=== PATIENT | female | born 1995 | race Caucasian/White ===

== ENCOUNTER 2023-11-19 06:56 | Day surgery (SDC) | payer BC, SELFPAY ==
[2023-11-19] VITALS (19 sets, daily range): BP systolic 82–125; BP diastolic 37–75; PULSE 65–97; RESP 14–27; TEMP 36–36.7; O2SAT 92–100; BMI 33.3
--- OUTSIDE RECORDS SUMMARY | 2023-11-19 06:57 | XMS_ITS | Encounter Summary ---
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 female followed for chronic otitis media with Left TM perforation and CHL, now s/p : Procedure(s): TYMPANOPLASTY (WRVU 10.05) GRAFT, EAR CARTILAGE NOSE, EAR (WRVU 7.5) MICROSCOPE USE (WRVU 3.46) FACIAL NERVE MONITORING, SETUP PERIPHERAL (WRVU 0.54) MODIFIER IRIDEX LASER MODIFIER,ENT MODERATE Findings: Postauricular approach. Large anterior inferior central, dry tympanic membrane perforation without under turned epithelium. Remnant drum with grade IV retraction posterior superior with associated myringoincudopexy with adhesions to inferior aspect of stapes suprastructure and stapes tendon, with early erosion of lenticular process of incus, and retraction towards posterior sinus. Remnant drum elevated in continuity. I-S joint overall intact with normal mobility of ossicular chain. NoOCR deemed required. Partial scutum removal with bony curette for surgical exposure, with preservation of chorda tympani. Significant fibrous adhesions posterior superior mesotympanum released from diaz rrounding structures. Iridex laser used to de-epithelialize margins of perforation and for release of remnant drum from malleus manubrium and umbo. Repair with Biodesign otologic graft. Interval history: Pain? Yes- but this is improving every day Drainage? Yes- but also improving every day Vertigo? No Fever/Chills/Night Sweats? No Nausea/Vomiting? No Eating Regular diet? Yes Questions/Concerns? No PMH: reviewed, no interval change System review: the Constitutional and ENT systems are thoroughly reviewed for any changes. Pertinent positives are listed in the HPI. Physical Exam The patient is well developed, well nourished. Responds to commands appropriately. Vocalizes in a strong clear voice. Alert and oriented x3. Ears: Ear were carefully examined using binocular microscopy Left side: Post Auricular incision clean, dry, intact. Steri-strips removed without complication. No evidence of discharge, hemorrhage or dehiscence EAC obsturcted with Gel-foam packing TM not visualized EOMI (CN III, IV, ) Sharp sensation intact and symmetric bilaterally in all trigeminal branches(CN V) Facial Nerve Function is strong and symmetric (CN VII) House-Brackman I Hitselberger Test - no hypoesthesia in either EAC (CNVII) Palate is midline and voice is strong (CN IX & X) Tongue is midline (CN XII) Shoulder elevation is strong and symmetrical (XI) Audiological Exam None deferred until none Labs and Imaging Significant lab values are as follows: None I reviewed the following imaging studies: None A/P: Now s/p Procedure(s): TYMPANOPLASTY (WRVU 10.05) GRAFT, EAR CARTILAGE NOSE, EAR (WRVU 7.5) MICROSCOPE USE (WRVU 3.46) FACIAL NERVE MONITORING, SETUP PERIPHERAL (WRVU 0.54) MODIFIER IRIDEX LASER MODIFIER,ENT MODERATE Doing well with no concerns. 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
--- OUTSIDE RECORDS SUMMARY | 2023-11-19 06:57 | XMS_ITS | Encounter Summary ---
Author Organization [facility] Address [facility] [address] [place] [address] Care Team Providers Care Cloth Grader Name Role Phone Kat Agarwal MD Primary Care Provider [phone]- [phone] Reason for Visit * Reason Comments Post Op Some sensation when moving jaw. 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; Conductive hearing loss of left ear with unrestricted hearing of right ear; S/P tympanoplasty Social History Tobacco Use Types Packs/Day Years Used Date Smoking Tobacco: Never Smokeless Tobacco: Never Sex and Gender Information Value Date Recorded Sex Assigned at Not on file Gender Identity Not on file Sexual Orientation Not on file documented as of this encounter Last Filed Vital Signs Vital Sign Reading Time Taken Comments Blood Pressure - - Pulse - - Temperature - - Respiratory Rate - - Oxygen Saturation - - Inhaled Oxygen Concentration - - Weight 93.5 kg (206 lb 1.6 oz) 05/30/2021 9:44 A M EST Height 170.2 cm (5' 7) 05/30/2021 9:44 AM EST Body Mass Index 32.28 05/30/2021 9:44 AM EST documented in this encounter Progress Notes * Anel Rodriguez MD - 05/30/2021 10:00 AM EST HPI: 25 y.o. female followed for h/o chronic otitis media with Left TM perforation and CHL. Now s/pLEFT tympanoplasty. Surgery 04/28/21. Intraoperative Findings: Postauricular approach. Large anterior inferior central, [...] intact with normal mobility of ossicular chain. No OCR deemed required. Partial scutum removal with bony curette for surgical exposure,with preservation of chorda tympani. Significant fibrous adhesions posterior superior mesotympanum r eleased from surrounding structures. Iridex laser used to de-epithelialize margins of perforation and for release of remnant drum from malleus manubrium and umbo. No evidence of roland cholesteatoma. Repair with Biodesign otologic graft. Patient last seen on 05/09 at which time was doing well. Interval history: No pain, drainage, dizziness or vertigo, recent illness. Cont's gtts and dep's. She notes intermittent snapping sounds on the left when she eats, and experienced some occasional temporal spasm. Some reported dysgeusia, improving. No facial weakness or spasm. System review: the Constitutional and ENT systems are thoroughly reviewed for any changes. Pertinent positives are listed in the HPI. Physical Exam General: Alert and oriented. No acute distress. ?? Head and Face: Head is normocephalic, atraumatic. Facial resting tone symmetric. ?? Eyes: Conjugate gaze, ocular motility intact bilaterally. No spontaneous or gaze evoked nystagmus. ?? Neurologic: Cranial Nerves II-XII grossly intact and symmetric. ?? Ears: External ears without deformity. See documentation of otomicroscopy below. ?? Tuning forks: Moss lateralizes left; AC>BC right, AC>BC left (improved from preop) ? Ears examined and cleaned with aid of binocular microscopy. ?? Right Ear: Auricle normal. External auditory canal clear. Drum is intact with normal mobility via pneumatic otoscopy. No appreciable retraction, and pars flaccida region clear. Posterior focal myringosclerosis. Middle ear is well aerated. Negative fistula test. ?? Left Ear: Auricle normal. Postauricular incision well healed. Remnant packing removed from left EAC. EAC canal incisions healing well. Grafted drum appears intact. Continued epithelialization. No retraction. Some residual posterior superior edema. No granulation or infection. Audiological Exam NA Labs and Imaging Significant lab values are as follows: None I reviewed the following imaging studies: None A/P: Dakotah Saleh is a 25 y.o. female with history of chronic otitis media, ADHD, anxiety, and depression who presented with history of recent ear infection on the left manifesting as otalgia, otorrheaand subjective hearing decline, with symptoms largely improving following treatment with ototopicalantibiotic drops. However, she was aware of a persistent hearing loss on this side. Patient acknowledged a history of recurrent otalgia on the left with water exposure without roland infections. Past history of childhood chronic otitis media with presumed Eustachian tube dysfunction and multiple prior tympanostomy tubes bilaterally, most recently as an adolescent. ?? Examination findings on the left included an approximate 25% anterior inferior, central, dry tympanic membrane perforation, as well as a grade 4 posterior superior retraction with associated myringoincudopexy. No accumulated debris. No significant scutal erosion. No obvious incus erosion. Patient now approximately one months s/p LEFT tympanoplasty. Surgery 04/28/21. Patient doing overall well since surgery. Appears to be healing well. Grafted drum appears intact. Tuning fork testing today reassuring. -Discussed maintaining dry ear precautions. Patient can stop ear drops at this time. -Plan for FU in one month with repeat audiogram as scheduled. Anel Rodriguez MD ENT PGY-3 [place] [id number] phone: [phone] Otolaryngology Attending Physician Addendum I have seen and examined the patient and reviewed the resident's history and I agree with the details as written. The assessment and plan were formulated in discussion with me and I agree with them as documented. 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
--- OUTSIDE RECORDS SUMMARY | 2023-11-19 06:57 | XMS_ITS | Encounter Summary ---
Author Organization [facility] Address [facility] [address] [place] [address] Care Team Providers Care Hoop Flaring Machine Operator Helper Name Role Phone Kat Agarwal MD Primary Care Provider [phone]- [phone] Encounter Details Date Type Department Care Team (Late st Contact Info) Description 12/20/2021 9:40 AM EDT Office [place] [address] Kimo Beltran MD [facility] [place] [address] Conductive hearing loss of left ear with unrestricted hearing of right ear; S/P tympanoplasty; Temporomandibular dysfunction syndrome Social History Tobacco Use Types Packs/Day Years Used Date Smoking Tobacco: Never Smokeless Tobacco: Never Sex and Gender Information Value Date Recorded Sex Assigned at Not on file Gender Identity Not on file Sexual Orientation Not on file documented as of this encounter Progress Notes * Kimo Beltran MD - 12/20/2021 9:40 AM EDT Interval History: 12/20/2021. Presents today with father. Reports recent issues with aural fullness bilaterally, left greater than right. She has additionally been aware of some pain in the preauricular region with radiation to the left temporal regions and left jaw, with occasional radiation of pain into the left proximal neck. Reports ongoing clicking with jaw movements. She has a past history of spasm involving the musclesof mastication following surgery. Denies any jaw locking. Patient questions possible bruxism history. Denies malocclusion. No known nighttime teeth grinding. Pain not obviously exacerbated by chewingor eating. Denies any current otalgia concerns. Denies any recent otorrhea. Hearing has remained sub jectively stable. She is primarily concerned regarding the possibility of recurrent ear infection in the left ear. Repeat audiogram 12/20/2021 reviewed. Essentially normal thresholds on the right. Borderline normal thresholds on the left with slight conductive overlay. Speech sales representative supervisor thresholds at 10 dB for the right and 20 dB for the left. Excellent bilateral discrimination. Type Ad tymp AD and type As tymp . Findings overall stable as compared to prior audiogram 07/11/2021. 09/14/2021: F/u left ear. Hearing stable. Had some fullness/otalgia left ear for past few days. No otorrhea. Nodizziness/vertigo. Accompanied by father. 07/11/2021: H/o chronic otitis media with Left TM perforation and CHL. Now s/p LEFT tympanoplasty. Surgery 04/28/21. Intraoperative Findings: Postauricular approach. [...] with Biodesign otologic graft. Patient last seen 05/30/2021. Denies pain. No otorrhea, but the left ear has felt somewhat wet. No dizziness or vertigo. Reports mild residual dysgeusia, largely improved. Repeat audiogram 07/11/2021 reviewed. Normal to mild conductive hearing loss on the left. Improvement of 5-35 dB from 250 to 6000 Hz as compared to prior audiogram 02/02/2021. Largely normal thresholds on the right save for slight hearing decline at 8000 Hz. SRT 0dB right and 10dB left. Excellent bilateral discrimination. Type Ad tymp right, with large vol flat tymp left. System review: the Constitutional and ENT systems are thoroughly reviewed for any changes. Pertinent positives are listed in the HPI. Physical Exam General: Alert and oriented. No acute distress. Head and Face: Head is normocephalic, atraumatic. Facial resting tone symmetric. Eyes: Conjugate gaze, ocular motility intact bilaterally. No spontaneous or gaze evoked nystagmus. Neurologic: Cranial Nerves II-XII grossly intact and symmetric. Ears: External ears without deformity. See documentation of otomicroscopy below. MSK: Normal neck range of motion. No trismus. Clicking / grinding bilateral TMJ with preauricular ttp, left greater than right. Resp: Breathing comfortably without stridor or retractions. Normal respirations. CV: Normal carotid pulses. Psych: Normal mood and affect. Ears examined and cleaned with aid of binocular microscopy. ?? Right Ear: Auricle normal. External auditory canal clear. Drum is intact with normal mobility via pneumatic otoscopy. No appreciable retraction, and pars flaccida region clear. Posterior focal myringosclerosis. Middle ear is well aerated. Negative fistula test. ?? Left Ear: Auricle normal. Well healed postauricular scar. Grafted drum intact today. No appreciableretraction. Normally mobile via pneumatic otoscopy. Evidence of some lateralization of remnant drumoff umbo and distal manubrium as well as middle ear adhesions, although middle ear appears well aerated. No mucosalization, granulation or infection. No evident cholesteatoma. Audiological Exam NA Labs and Imaging Significant lab values are as follows: None I reviewed the following imaging studies: None A/P: Dakotah Saleh is a 25 y.o. female with history of ADHD, anxiety, and depression who presented with history of chronic suppurative otitis media and hearing loss concerns left ear. Past history of childhood chronic otitis media with presumed Eustachian tube dysfunction and multiple prior tympanostomy tubes bilaterally, most recently as an adolescent. ?? Examination findings on the left included an approximate 25% anterior inferior, central, dry tympanic membrane perforation, as well as a grade 4 posterior superior retraction, with associated myringoincudopexy. No accumulated debris. No significant scutal erosion. No incus erosion. Patient underwent left tympanoplasty. Surgery 04/28/21. Had small residual inferior perforation following surgery which has since healed spontaneously. Experienced significant hearing improvements left ear following surgery, with repeat audiogram stable today. Recent complaints of aural fullness with some periodic otalgia, left greater than right. Explained that otomicroscopic exam findings today overall very reassuring. No evidence of infection, and no appreciable evidence for ongoing ETD. Discussed that characterization of complaints and exam findings are suspect for temporomandibular dysfunction with referred otalgia. Conservative treatment strategies have been reviewed, to include recommendations for soft diet, abstinence from gum chewing, NSAIDs prn, as well as consideration to possible nighttime splint which she could pursue with her Dentist. Other lifestyle strategies regarding sleep hygiene and exercise were also discussed. Also discussed recommended close serial otologic surveillance. Plan f/u 6 months, sooner prn. Early return precautions reviewed. Total time spent counseling and coordinating patient care 40 minutes. Kimo Beltran MD Otology / Neurotology Otolaryngology - Head & Neck Surgery [facility] documented in this encounter Plan of Treatment Not on file documented as of this encounter Visit Diagnoses Diagnosis Conductive hearing loss of left ear with unrestricted hearing of right ear S/P tympanoplasty Other postprocedural status Temporomandibular dysfunction syndrome Temporomandibular joint disorders, unspecified documented in this encounter Care Teams Hoop Flaring Machine Operator Helper Relationship Specialty Start Date End Date Kat Agarwal MD [address] [place] [id number] PCP - General Family Medicine 03/24/21 documented as of this encounter
--- OUTSIDE RECORDS SUMMARY | 2023-11-19 06:57 | XMS_ITS | Encounter Summary ---
Author Organization [facility] Address [facility] [place] [place] [address] Care Team Providers Care Steam Pressure Chamber Operator Name Role Phone Kat Agarwal MD Primary Care Provider +1- [phone] Reason for Visit * Reason Comments Follow-up She is having ear pa in. Encounter Details Date Type Department Care Team (Late st Contact Info) Description 07/17/2023 1:40 PM EDT Office [place] [phone] Kimo Beltran MD [facility] [place] [address] Conductive hearing loss of left ear with unrestricted hearing of right ear; Otalgia of both ears; Temporomandibular dysfunction syndrome; Chronic neck pain; Deviated nasal septum; Nasal turbinate hypertrophy Social History Tobacco Use Types Packs/Day Years [...] - Inhaled Oxygen Concentration - - Weight 103 kg (227 lb) 07/17/2023 1:52 PM EDT Height 175.3 cm (5' 9) 07/17/2023 1:52 PM EDT Body Mass Index 33.52 07/17/2023 1:52 PM EDT documented in this encounter Progress Notes * Kimo Beltran MD - 07/17/2023 1:40 PM EDT Interval History: 07/16/2023: Follow-up routine otologic and hearing surveillance. Accompanied by father. Patient reports she experienced an upper respiratory illness in March. Experienced a popping sensation in her left ear. Later experienced left greater than right ear pain. No otorrhea or subjective changes in hearing. Presented to urgent care. Treated empirically with otic topical antibiotic drops left ear. Reports no subjective benefit with this. In subsequent follow-up with PCP, treated empirically with oral antibiotics. Was then well until she reports she felt like she twisted her neck, and the pain again recurred. Pain has since largely resolved. Hearing has remained stable. No dizziness / vertigo concerns, but reports motion sickness sensation when riding in the back of the car. Has been contending with suboccipital and paraspinal muscle pain and tension. Has also still been contending with temporomandibular dysfunction symptoms by report, and she is slated to see a TMJ specialist. History of bruxism and presumed nighttime teeth grinding. A daytime splint and oral nightguard has apparently been recommended by Dental. Denies headaches or migraine. No visual sxs or focal neurologic concerns. Has also been more aware recently of left greater than right nasal obstructive complaints. Denies mid facial pain or pressure. No rhinorrhea. Patient is aware a periodic postnasal drip sensation. No allergy or asthma history. No history of recurrent acute or chronic sinusitis requiring antibiotics.Reported snoring. No obvious NELDA concerns. Repeat audiogram 07/17/2023 reviewed. Essentially normal thresholds right. Normal to mild conductive hearing loss left. BC thresholds symmetric. SRT DNT. Excellent bilateral discrimination. Normal bilateral tympanometry. As compared to prior audiogram 12/20/2021, findings essentially unchanged. 12/20/2021. Presents today with father. Reports recent [...] the left with slight conductive overlay. Speech administrative assistant receptionist thresholds at 10 dB for the right [...] without deformity. See documentation of otomicroscopy below. Nose: External nose is midline without deformity or lesion. Left nasal septal deviation. Bilateral ITH, right greater than left. Oral: There are no visible or palpable buccal, gingival, lingual, or palatal lesions. The floor of mouth is soft and flat. Oropharynx: Normal exam of the tonsils, tonsillar fossa, soft palate, and posterior pharynx. Salivary: Normal exam of the parotid and submandibular glands. Hem/Lymph/Imm: Neck supple without cervical mass or lymphadenopathy. Skin: Skin survey of the head and neck is without concerning lesion. MSK: Normal neck range of motion. Posterior cervical paraspinal muscle tension with spasm. Significant suboccipital muscle tension with spasm, with palpation recreating left otalgia complaints. No trismus. Crepitance bilateral TMJ with preauricular ttp, left greater than right. Also with ttp posterior temporomandibular joint capsule left. Resp: Breathing comfortably without stridor or retractions. Normal respirations. CV: Normal carotid pulses. Psych: Normal mood and affect. Ears examined and cleaned with aid of binocular microscopy. Right Ear: Auricle normal. External auditory canal clear. Drum is intact with normal mobility via pneumatic otoscopy. No appreciable retraction, and pars flaccida region clear. Posterior focal myringosclerosis. Middle ear is well aerated. Negative fistula test. Stable exam. Left Ear: Auricle normal. Well healed postauricular scar. Grafted drum intact. No appreciable retraction. Normally mobile via pneumatic otoscopy. Evidence of some lateralization of remnant drum off umbo and distal manubrium as well as middle ear adhesions, to include adhesion to incus without evident erosion. Middle ear appears well aerated. No mucosalization, granulation or infection. No evidentcholesteatoma. Overall stable exam. Labs and Imaging Significant lab values are as follows: None I reviewed the following imaging studies: None A/P: Dakotah Saleh is a 25 y.o. female with history of ADHD, anxiety, and depression who presented initially with history of chronic suppurative otitis media and hearing loss concerns left ear. Past history of childhood chronic otitis media with presumed Eustachian tube dysfunction and multiple prior t ympanostomy tubes bilaterally, most recently as an adolescent. Examination findings on the left included an approximate 25% anterior inferior, central, dry tympanic membrane perforation, as well as a grade 4 posterior superior retraction, with associated myringoincudopexy. No accumulated debris. No significant scutal erosion. No incus erosion. Patient underwent left tympanoplasty. Surgery 04/28/21. Had very small residual inferior perforation following surgery which subsequently healed spontaneously. Experienced significant hearing improvements left ear following surgery, with repeat audiogram stable today as compared to previous. Recurrent complaints of aural fullness with periodic otalgia, left greater than right. Otomicroscopic exam findings have remained overall stable and reassuring. No evidence of infection,chronic otitis media, and no appreciable evidence for ongoing ETD. Again discussed that characterization of complaints and exam findings remain suspect for temporomandibular dysfunction with referred otalgia. Patient is followed by Dental, and reportedly slated to see TMJ specialist. By history and exam findings today, consider also suspected referred cervicogenicorigins for recurrent otalgia, with focal suboccipital muscle tenderness to palpation today recreating some her typical otalgia concerns. Conservative treatment strategies have been reviewed, to include recommendations for soft diet, jawrest and abstinence from gum chewing, NSAIDs as needed, moist heat or cold packs, as well as consideration to possible sawdust machine operator or daytime oral splint which had been reportedly recommended by Dental. Other lifestyle strategies regarding sleep hygiene and exercise were also discussed, as well as stress reduction techniques. Also discussed potential role for Physical Therapy or message therapy. Trigger point injections or Botox therapy can sometimes offer benefit. Muscle relaxants, anti-anxiety medications or antidepressants may additionally provide benefit. Discussed recommended continued serial otologic and hearing surveillance. Will arrange for f/u 6 months recheck, sooner prn. Patient today also with nasal obstructive complaints and snoring. Exam with NSD and ITH. Recommended trial with topical nasal steroid spray. Will arrange for f/u with [facility]. Early return precautions reviewed. Total time spent counseling and coordinating patient care 40 minutes. Kimo Beltran MD Otology / Neurotology Otolaryngology - Head & Neck Surgery [facility] documented in this encounter Plan of Treatment Not on file documented as of this encounter Visit Diagnoses Diagnosis Conductive hearing loss of left ear with unrestricted hearing of right ear Otalgia of both ears Otalgia, unspecified Temporomandibular dysfunction syndrome Temporomandibular joint disorders, unspecified Chronic neck pain Cervicalgia Deviated nasal septum Nasal turbinate hypertrophy Hypertrophy of nasal turbinates documented in this encounter Care Teams Steam Pressure Chamber Operator Relationship Specialty Start Date End Date Kat Agarwal MD [address] [place] [id number] PCP - General Family Medicine 03/24/21 documented as of this encounter
--- OUTSIDE RECORDS SUMMARY | 2023-11-19 06:57 | XMS_ITS | Encounter Summary ---
Author Organization [facility] [address] [place] [address] Care Team Providers Care Revenue Cycle Analyst Name Role Phone Kat Agarwal MD Primary Care Provider +1- [phone] Encounter Details Date Type Department Care Team (Late st Contact Info) Description 08/01/[address] [facility] [place] [phone] Bertha Bass RN Social History Tobacco Use Types Packs/Day Years Used Date Smoking Tobacco: Never Smokeless Tobacco: Never Sex and Gender Information Value Date Recorded Sex Assigned at Not on file Gender Identity Not on file Sexual Orientation Not on file documented as of this encounter Miscellaneous Notes * Telephone Encounter - Bertha Bass RN - 08/05/2021 11:30 AM EDT Letter received as well as message received by patient's employer, [employer]. He would like clarification of charges from surgery and amount patient owes. Informed [employer] this is not something this office takes care of and doesn't have access to this information. He will need to reach out to billing department. Phone number offered and given. [employer] will reach out to them for more accurate billing information. * Telephone Encounter - Terry Nathan RN - 08/04/2021 3:13 PM EDT [employer] (patients employer) called because he was reviewing the work letter that was submitted and he needs more details in order for the patient to be reimbursed. His call back number is [phone] ext [phone]. * Telephone Encounter - Bertha Bass RN - 08/01/2021 12:37 PM EDT Patient's call returned. Patient requesting updated letter with both procedures. Numerous explanations given to patient only one surgery was done with description of what was done. Patient stating the employer is asking for more information. New letter written and emailed to same personal emailas before, with all parts of surgery within this letter. Explained to patient if the employer needsfurther information, they will need to fax paperwork to be completed. Patient having a hard time describing what's needed and appearing to have a difficult understanding of what's being requested by employer. ----- Message from Tracy Torrez sent at 08/01/2021 11:54 AM EDT ----- Regarding: Work letter Mireya Patient stated that the letter she received only had the one surgical procedure on it and work is requesting both procedures with a description of what was done, what it was for and the date performed. She said its for insurance purposes that they both need to be listed in the letter. She would like it emailed to her personal email and she will get it to her boss. Thanks! Tracy documented in this encounter Plan of Treatment Not on file documented as of this encounter Visit Diagnoses Not on filedocumented in this encounter Care Teams Revenue Cycle Analyst Relationship Specialty Start Date End Date Kat Agarwal MD [address] [place] [id number] PCP - General Family Medicine 03/24/21 documented as of this encounter
--- OUTSIDE RECORDS SUMMARY | 2023-11-19 06:57 | XMS_ITS | Encounter Summary ---
Author Organization [facility] [address] [place] [address] Care Team Providers Care Engineered Wood Designer Name Role Phone Kat Agarwal MD Primary Care Provider +1- [phone] Encounter Details Date Type Department Care Team (Late st Contact Info) Description 07/27/2021 Telephone Otolaryngology at [facility] [place] [phone] Bertha Bass RN Social History Tobacco Use Types Packs/Day Years Used Date Smoking Tobacco: Never Smokeless Tobacco: Never Sex and Gender Information Value Date Recorded Sex Assigned at Not on file Gender Identity Not on file Sexual Orientation Not on file documented as of this encounter Miscellaneous Notes * Telephone Encounter - Bertha Bass RN - 07/27/2021 6:04 PM EDT Call received on nurse triage line from [employer]. Unable to find information in patient's chart for such a person. Patient called by this RN to see if she knows why [employer] is calling. Patient states [employer] is her employer and he's requesting a letter from ENT stating what patient's surgery was, what itwas for, and the date of surgery. This letter must be on [facility] letterhead and signed by the surgeon. This letter was completed and emailed to patient at her personal email, per her request: [email or web address] documented in this encounter Plan of Treatment Not on file documented as of this encounter Visit Diagnoses Not on filedocumented in this encounter Care Teams Engineered Wood Designer Relationship Specialty Start Date End Date Kat Agarwal MD [address] [place] [address] PCP - General Family Medicine 03/24/21 documented as of this encounter
--- OUTSIDE RECORDS SUMMARY | 2023-11-19 06:57 | XMS_ITS | Encounter Summary ---
Author Organization [facility] Address [facility] [place] [place] [address] Care Team Providers Care End Trimmer Name Role Phone Kat Agarwal MD Primary Care Provider +1- [phone] Encounter Details Date Type Department Care Team (Latest Contact Info) Description 09/14/2021 2:00 PM EDT Office [place] [address] Kimo Beltran MD [facility] [place] [address] Conductive hearing loss of left ear with unrestricted hearing of right ear; Perforation of left tympanic membrane; S/P tympanoplasty Social History Tobacco Use Types Packs/Day Years Used Date Smoking Tobacco: Never Smokeless Tobacco: Never Sex and Gender Information Value Date Recorded Sex Assigned at Not on file Gender Identity Not on file Sexual Orientation Not on file documented as of this encounter Last Filed Vital Signs Vital Sign Reading Time Taken Comments Blood Pressure 102/52 09/14/2021 3:12 PM EDT Pulse 61 09/14/2021 3:12 PM EDT Temperature - - Respiratory Rate - - Oxygen Saturation 100% 09/14/2021 3:12 PM EDT Inhaled Oxygen Concentration - - Weight - - Height - - Body Mass Index - - documented in this encounter Progress Notes * Kimo Beltran MD - 09/14/2021 2:00 PM EDT Interval History: 09/14/2021: F/u left ear. Hearing stable. Had [...] without deformity. See documentation of otomicroscopy below. Psych: Normal mood and affect. Ears examined and cleaned with aid of binocular microscopy. ?? Right Ear: Auricle normal. External auditory canal clear. Drum is intact with normal mobility via pneumatic otoscopy. No appreciable retraction, and pars flaccida region clear. Posterior focal myringosclerosis. Middle ear is well aerated. Negative fistula test. ?? Left Ear: Auricle normal. Postauricular incision well healed. Grafted drum with overriding obstructive dry crusting which we were able to carefully debride clear today with otologic instrumentation. Tolerated without complication. Presenting concerns of fullness/otalgia resolved immediately following debridement. Residual central dry small TM perforation is evident inferiorly. Also with some lateralization of remnant drum off umbo and distal manubrium. No under turned epithelium. Middle ear adhesions. No mucosalization, granulation or infection. Remnant drum without retraction. No evident cholesteatoma. Audiological Exam NA Labs [...] erosion. Patient underwent left tympanoplasty. Surgery 04/28/21. Patient doing overall well since surgery. However, exam today reveals residual TM perforation. We discussed this uncommon circumstance as a potential outcome in some patients. Discussed potential contributing factors, to include possible underlying ETD. Questions answered. Still very satisfied with significant hearing improvements left ear following surgery. Advised continued observation for now, but did discuss the potential option of future revision tympanoplasty, possibly with further cartilage in repair. Will continue with dry ear precautions. Plan f/u 6 months with repeat AE, sooner as needed. Early return precautions reviewed. The total time spent for chart review, history, examination, counseling, education, and documentation was 40 minutes, including 15 minutes spent doing ear debridement. Kimo Beltran MD Otology / Neurotology Otolaryngology - Head & Neck Surgery [facility] documented in this encounter Plan of Treatment Not on file documented as of this encounter Visit Diagnoses Diagnosis Conductive hearing loss of left ear with unrestricted hearing of right ear Perforation of left tympanic membrane Perforation of tympanic membrane, unspecified S/P tympanoplasty Other postprocedural status documented in this encounter Care Teams End Trimmer Relationship Specialty Start Date End Date Kat Agarwal MD [address] [place] [id number] PCP - General Family Medicine 03/24/21 documented as of this encounter
--- OUTSIDE RECORDS SUMMARY | 2023-11-19 06:57 | XMS_ITS | Encounter Summary ---
Author Organization [facility] [place] [address] [place] [address] Care Team Providers Care Social Worker Aide Name Role Phone Kat Agarwal MD Primary Care Provider +1- [phone] Encounter Details Date Type Department Care Team (Late st Contact Info) Description 07/15/2021 Telephone [facility] [place] [phone] Taylor Mcgarry Social History Tobacco Use Types Packs/Day Years Used Date Smoking Tobacco: Never Smokeless Tobacco: Never Sex and Gender Information Value Date Recorded Sex Assigned at Not on file Gender Identity Not on file Sexual Orientation Not on file documented as of this encounter Miscellaneous Notes * Telephone Encounter - Taylor Mcgarry - 07/21/2021 10:17 AM EDT Called [phone] [facility] for callback Sending patient letter * Telephone Encounter - Taylor Mcgarry - 07/15/2021 11:20 AM EDT Called patient at [phone], calling to schedule: Follow-up disposition: Return in about 2 months (around 09/10/2021). - with Dr. Devin Shukla [facility] voicemail for patient to callback documented in this encounter Plan of Treatment Not on file documented as of this encounter Visit Diagnoses Not on filedocumented in this encounter Care Teams Social Worker Aide Relationship Specialty Start Date End Date Kat Agarwal MD [address] [place] [address] PCP - General Family Medicine 03/24/21 documented as of this encounter
--- OUTSIDE RECORDS SUMMARY | 2023-11-19 06:57 | XMS_ITS | Encounter Summary ---
Author Organization [facility] Address [facility] [place] [place] [address] Care Team Providers Care Chemist Food Name Role Phone Kat Agarwal MD Primary Care Provider +1- [phone] Reason for Visit * Reason Comments Follow Up Surgery L ear a little leaky still Encounter Details Date Type Department Care Team (Latest Contact Info) Description 07/11/2021 1:40 PM EDT Office [place] [phone] Kimo Beltran MD [facility] [place] [address] Postoperative examination; Conductive hearing loss of left ear with unrestricted hearing of right ear; 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 Grafted drum with overriding dry crusting. Not tolerant to attempted debridement today. Query small residual perforation inferiorly beneath margin of crust, not fully visualized. No evident retraction or cholesteatoma. Audiological Exam NA Labs and Imaging [...] significant scutal erosion. No incus erosion. Patient now approximately one months s/p LEFT tympanoplasty. Surgery 04/28/21. Patient doing overall well since surgery. Appears to be healing well overall. Grafted drum with overriding central dry crusting today, and patient not tolerant to attempted debridement. Concern over possible small residual perforation anterior inferior at margin of crusting by exam, and by tympanometry testing today. Repeat audiogram with improved hearing on the left. Discussed recommendation for continued observation for now, with plan for short interval follow-up to reassess, in approximately 2 months. Discussed maintaining dry ear precautions for now. Patient and father in agreement with plan. 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
--- OUTSIDE RECORDS SUMMARY | 2023-11-19 06:57 | XMS_ITS | Encounter Summary ---
Author [facility] [address] Care Team Providers Care Molder Apprentice Name Role Phone Kat Agarwal MD Primary Care Provider +1- [phone] Encounter Details Date Type Department Care Team (Latest Contact Info) Description 07/17/2023 Travel Social History Tobacco Use Types Packs/Day Years Used Date Smoking Tobacco: Never Smokeless Tobacco: Never Sex and Gender Information Value Date Recorded Sex Assigned at Not on file Gender Identity Not on file Sexual Orientation Not on file documented as of this encounter Plan of Treatment Not on file documented as of this encounter Visit Diagnoses Not on filedocumented in this encounter Care Teams Molder Apprentice Relationship Specialty Start Date End Date Kat Agarwal MD [address] [place] [address] PCP - General Family Medicine 03/24/21 documented as of this encounter
--- OUTSIDE RECORDS SUMMARY | 2023-11-19 06:57 | XMS_ITS | Encounter Summary ---
Author Organization [facility] [place] [address] [place] [address] Care Team Providers Care Sugar Drier Name Role Phone Kat Agarwal MD Primary Care Provider +1- [phone] Encounter Details Date Type Department Care Team (Late st Contact Info) Description 12/20/2021 8:45 AM EDT Office Visit Audiology at [address] [address] Raissa Arias AUD [facility] [place] [place] [address] Conductive hearing loss of left ear with unrestricted hearing of right ear; Left ear pain Social History Tobacco Use Types Packs/Day Years Used Date Smoking Tobacco: Never Smokeless Tobacco: Never Sex and Gender Information Value Date Recorded Sex Assigned at Not on file Gender Identity Not on file Sexual Orientation Not on file documented as of this encounter Progress Notes * Raissa Arias AUD - 12/20/2021 8:45 AM EDT AUDIOLOGY SECTION Dakotah Robin Saleh, age 26 years, was seen on 12/20/2021 for an audiologic evaluation in conjunction with Kimo Beltran MD. Please refer to the audiogram under the Procedures tab in the electronic medical record for findings, impressions and recommendations. Dick Arias MS, [facility] Clinical Coordinator, [place] [address] [phone] (fax) documented in this encounter Plan of Treatment Not on file documented as of this encounter Procedures Procedure Name Priority Date/Time Associated Diagnosis Comments COMPREHENSIVE HEARING TEST Routine 12/20/2021 8:37 AM EDT documented in this encounter Results * Comprehensive hearing test (12/20/2021 8:37 AM EDT) 12/20/2021 8:37 AM EDT Narrative AUDBASE COMP - 12/20/2021 8:37 AM EDT Pt will follow-up as scheduled with Dr. Beltran. ?? Procedure Note Unknown - 12/20/2021 Pt will follow-up as scheduled with Dr. Beltran. Raissa VASQUES AUDIOLOGY SERVIC ES ORDERABLES AUDBASE COMP documented in this encounter Visit Diagnoses Diagnosis Conductive hearing loss of left ear with unrestricted hearing of right ear Left ear pain Otalgia, unspecified documented in this encounter Care Teams Sugar Drier Relationship Specialty Start Date End Date Kat Agarwal MD [address] [place] [id number] PCP - General Family Medicine 03/24/21 documented as of this encounter
--- OUTSIDE RECORDS SUMMARY | 2023-11-19 06:57 | XMS_ITS | Clinical Summary ---
Author Organization [facility] Address [facility] [place] [address] Care Team Providers Care Bin Operator Name Role Phone Kat Agarwal MD Primary Care Provider +1- [phone] Allergies Active Allergy Reactions Criticality Noted Date Comments Amoxicillin Itching 02/02/2021 Medications Medication Sig Dispensed Refills Start Date End Date Status sertraline (Zoloft) 25 mg Tablet Take 25 mg by mouth daily. Active erythromycin (Romycin) 5 mg/gram (0.5 %) Ointment APPLY IN BOTH EYES DAILY X 7 DAYS AT A TIME WITH BREAKS IN BETWEEN OF AT LEAST 10 TO 14 DAYS 07/20/2021 Active fluticasone propionate (Flonase) 50 mcg/actuation [place], Suspension 1 spray by Each Nare route daily. 16 g 12 07/20/2023 Active Active Problems Problem Noted Date Diagnosed Date Tympanic membrane perforation, left 03/07/2021 Overview (03/07/2021): TYMPANOPLASTY Patient's Name: Dakotah Saleh Surgery Date: 04/28/2021 Interval Follow Up: Year 1 Post-Op 1 Week 4-6 Weeks 10 Weeks 05/05/21 05/28/21 07/11/21 RIMMA - MD x x RIMMA-AP x AUD 45 PRIOR to appt x Social History Tobacco Use Types Packs/Day Years Used Date Smoking Tobacco: Never Smokeless Tobacco: Never Sex and Gender Information Value Date Recorded Sex Assigned at Not on file Gender Identity Not on file Sexual Orientation Not on file Last Filed Vital Signs Vital Sign Reading Time Taken Comments Blood Pressure 102/52 09/14/2021 3:12 PM EDT Pulse 61 09/14/2021 3:12 PM EDT Temperature 36.3 ??C (97.3 ??F) 04/28/2021 3:10 PM ES T Respiratory Rate 16 04/28/2021 3:45 PM EST Oxygen Saturation 100% 09/14/2021 3:12 PM EDT Inhaled Oxygen Concentration - - Weight 103 kg (227 lb) 07/17/2023 1:52 PM EDT Height 175.3 cm (5' 9) 07/17/2023 1:52 PM EDT Body Mass Index 33.52 07/17/2023 1:52 PM EDT Plan of Treatment Health Maintenance Due Date Last Done Comments HIV screen 2012 Hepatitis C Screening 2012 Lipid Screening 2012 Hepatitis B vaccine (0-59 yrs) (1) 2013 Tdap adult 2013 Tetanus vaccine 2013 Covid-19 Vaccine (1 - season) 2022 Influenza (Flu) vaccine (1 o f 1 - Influenza standard series) 12/23/2023 PAP Smear 10/13/2024 10/13/2021 Medical Devices Implanted Type Area Long Distance Billing Operator Device Identifier Shelf Expiration Date Model / Serial / Lot Graft Otologic Repair 2.5x2.5cm Square Bovine Collagen ([id number]) (Autoreq) - [id number] Implanted:Qty : 1 on 04/28/2021 by Kimo Beltran MD at [facility] IMPLANTS Left: Ear [employer] [id number] 07/19/2022 [id number] / / [id number] Procem Implanted:Qty : 1 on 04/28/2021 by Kimo Beltran MD at [facility] Left: Ear [id number] 11/19/2021 [id number] / / [id number] Procedures Procedure Name Priority Date/Time Associated Diagnosis Comments CONTINUOUS IMPROVEMENT COORDINATOR CYTOLOGY FINAL REPORT Routine 10/13/2021 12:00 PM EDT from Last 3 Months or Most Recently Relevant to Health Maintenance Results * Criminal Justice Instructor Cytology Final Report (10/13/2021 12:00 PM EDT) Criminal Justice Instructor Cytology Final Report [id number] ? Location: [facility] The signing pathologist has (i) examined the relevant preparation(s) for the specimen(s) and (ii) rendered or confirmed the diagnosis(es). . ? Criminal Justice Instructor Final DIAGNOSIS Normal Negative for intraepithelial lesion or malignancy (NILM). For consensus guidelines for the management of cervical cancer screening test results, please see: ?? http://www.asccp.o rg . Electronically signed by: ?Sedrick FOSTER(ASCP), Sarah Madden Verified: ??11/01/2021 15:06 ??Sponsorship Coordinator Performed at: ??-[facility] Dept. of Pathology, [place], [place] HPV RESULTS HPV16 (Result) ?Negative HPV18 (Result) ?Negative HPVOHR (Result) ? Negative HPV (Interpretation) ?See Below HPV (Interpretation) Text: NEGATIVE for high-risk HPV *. *Testing negative for high risk HPV means that high risk HPV DNA is not detected in the specimen for the following 14 types tested: types 16, 18, 31, 33, 35, 39, 45, 51, 52, 56, 58, 59, 66, and 68. The test is not intended to detect low risk HPV types. Method: Felix emily HPV test (FDA-approved for clinical use) Specimen: HPV Testing ?? - Cytology Liquid Based Prep This test is validated for cervical specimens only for use in cervical cancer screening. ??Other uses or specimen types are not validated/rec ommended. The Felix emily ? HPV test was validated, performed and results reported through the Laboratory for Clinical Genomics and Advanced Technology (CGAT) at [facility]. ? - Sohan Scott, PhD, [facility], Director-CGAT STATEMENT OF ADEQUACY Specimen submitted is satisfactory. Endocervical component present. CLINICAL INFORMATION HPV Option: ? Concurrent HPV CT/NG Option: ? No Preparation: ?Liquid Based Pap Specimen Source: ?Cervical Endocervical LBP LMP: ?(not provided) Hysterectomy?: ?No ?: ?No ?: ?No I.U.D.?: ?No Pelvic Radiation: ? No Hist Abnl Pap/Biopsy?: ??No Prior CONTINUOUS IMPROVEMENT COORDINATOR Therapy?: ? No Hist of HPV Vaccine?: ?? No ICD Diagnosis: ?Z12.4 Encounter for screening for malignant neoplasm of cervix . CLINICAL INFORMATION Clinical Data, Significant Therapy and Clinical Impression ?? : ?? _ Referring Identifier: ?(not provided) This Pap Test has been evaluated with the assistance of the Hastifyp Pap Test Imaging System. Note: The Pap test is a screening test for cervical cancer with an inherent false-negative rate dependent upon several variables. For further information please contact the [facility] Laboratory. Reference: Danny JARVIS. Tube Tester of Pap Smear Results. In: Se BS, Kavin HH, ed. ??The Pap Smear. [place]: Keith, 2002: 71-77. [facility] 10/13/2021 12:0 0 PM EDT Narrative Resulting Agency Comment Spec In Lab / WKS Kat Agarwal MD PATHOLOGY/CYTOLOGY ORDERABLES [facility] [place] [address] from Last 3 Months or Most Recently Relevant to Health Maintenance Care Teams Bin Operator Relationship Specialty Start Date End Date Kat Agarwal MD [address] [place] [address] PCP - General Family Medicine 03/24/21
--- OUTSIDE RECORDS SUMMARY | 2023-11-19 06:57 | XMS_ITS | Encounter Summary ---
Author Organization [facility] [address] [place] [address] Care Team Providers Care Cotton Inspector Name Role Phone Kat Agarwal MD Primary Care Provider +1- [phone] Encounter Details Date Type Department Care Team (Late st Contact Info) Description 07/17/2023 1:00 PM EDT Office Visit Audiology at [address] [address] Briana Neri AUD [facility] [place] [place] [address] Conductive hearing loss of left ear with unrestricted hearing of right ear; Left ear pain; Pressure sensation in left ear Social History Tobacco Use Types Packs/Day Years Used Date Smoking Tobacco: Never Smokeless Tobacco: Never Sex and Gender Information Value Date Recorded Sex Assigned at Not on file Gender Identity Not on file Sexual Orientation Not on file documented as of this encounter Progress Notes * Briana Neri AUD - 07/17/2023 1:00 PM ED[place] [address] Dakotah Saleh was seen on 07/17/2023 for an audiologic evaluation in conjunction with Dr. Beltran in ENT. Please refer to the scanned audiogram listed under Procedures for findings, impressions and recommendations. Amy Sood CCC (Kate)-A Clinical Staff Pharmacist [facility] [phone] documented in this encounter Plan of Treatment Not on file documented as of this encounter Procedures Procedure Name Priority Date/Time Associated Diagnosis Comments COMPREHENSIVE HEARING TEST Routine 07/17/2023 1:04 PM EDT documented in this encounter Results * Comprehensive hearing test (07/17/2023 1:04 PM EDT) 07/17/2023 1:04 PM EDT Narrative AUDBASE COMP - 07/17/2023 1:04 PM EDT Recommendations: -Follow up per Dr. Beltran in ENT. Procedure Note Unknown - 07/17/2023 Recommendations: -Follow up per Dr. Beltran in ENT. Briana Wheatleymirandapam [facility] ORDERABLES AUDBASE COMP documented in this encounter Visit Diagnoses Diagnosis Conductive hearing loss of left ear with unrestricted hearing of right ear Left ear pain Otalgia, unspecified Pressure sensation in left ear documented in this encounter Care Teams Cotton Inspector Relationship Specialty Start Date End Date Kat Agarwal MD [address] [place] [address] PCP - General Family Medicine 03/24/21 documented as of this encounter
--- OUTSIDE RECORDS SUMMARY | 2023-11-19 06:57 | XMS_ITS | Encounter Summary ---
Author Organization [facility]ly [facility] Address [facility] [place] [address] Care Team Providers Care General Car Supervisor Yard Name Role Phone Kat Agarwal MD Primary Care Provider +1- [phone] Encounter Details Date Type Department Care Team (Latest Contact Info) Description 10/13/2021 9:06 PM EDT - 10/13/2021 11:59 PM EDT Hospital Encounter Laboratory [facility] [place] [id number] Discharge Disposition: Home Social History Tobacco Use Types Packs/Day Years Used Date Smoking Tobacco: Never Smokeless Tobacco: Never Sex and Gender Information Value Date Recorded Sex Assigned at Not on file Gender Identity Not on file Sexual Orientation Not on file documented as of this encounter Medications at Time of Discharge Medication Sig Dispensed Refills Start Date End Date erythromycin (Romycin) 5 mg/gram (0.5 %) Ointment APPLY IN BOTH EYES DAILY X 7 DAYS AT A TIME WITH BREAKS IN BETWEEN OF AT LEAST 10 TO 14 DAYS 07/20/2021 sertraline (Zoloft) 25 mg Tablet Take 25 mg by mouth daily. documented as of this encounter Plan of Treatment Not on file documented as of this encounter Procedures Procedure Name Priority Date/Time Associated Diagnosis Comments HPV Routine 10/13/2021 12:00 PM EDT INSTRUMENT WORKER CYTOLOGY INTERPRETATION Routine 10/13/2021 12:00 PM EDT INSTRUMENT WORKER CYTOLOGY FINAL REPORT Routine 10/13/2021 12:00 PM EDT documented in this encounter Results * INSTRUMENT WORKER Cytology Interpretation (10/13/2021 12:00 PM EDT) Material Handling Supervisor Cytology Interpretation [facility] Comment:Material Handling Supervisor Cytology Final R eport Endocervical Component Present [facility] AP Specimen 10/13/2021 12:0 0 PM EDT 11/01/2021 3:06 PM EDT Narrative Resulting Agency Comment Spec In Lab / WKS Kat Agarwal MD PATHOLOGY/CYTOLOGY ORDERABLES [facility] [place] [address] * Material Handling Supervisor Cytology Final Report (10/13/2021 12:00 PM EDT) Material Handling Supervisor Cytology Final Report [id number] ? Location: [facility] The signing pathologist has (i) examined the relevant preparation(s) for the specimen(s) and (ii) rendered or confirmed the diagnosis(es). . ? Material Handling Supervisor Final DIAGNOSIS Normal Negative for intraepithelial lesion or malignancy (NILM). For consensus guidelines for the management of cervical cancer screening test results, please see: ?? http://www.asccp.o rg . Electronically signed by: ?Sedrick FOSTER(ASCP)Sarah Verified: ??11/01/2021 15:06 ??Item Processor Performed at: ??-[facility] Dept. of Pathology, [place], [place] HPV RESULTS HPV16 (Result) ?Negative HPV18 [...] Clinical Genomics and Advanced Technology (CGAT) at [facility]. ? - Sohan Scott, PhD, [facility], Director-[facility] STATEMENT OF ADEQUACY Specimen submitted is satisfactory. Endocervical component present. CLINICAL INFORMATION HPV Option: ? Concurrent HPV CT/NG Option: ? No Preparation: ?Liquid Based Pap Specimen Source: ?Cervical Endocervical LBP LMP: ?(not provided) Hysterectomy?: ?No ?: ?No ?: ?No I.U.D.?: ?No Pelvic Radiation: ? No Hist Abnl Pap/Biopsy?: ??No Prior INSTRUMENT WORKER Therapy?: ? No Hist of HPV Vaccine?: ?? No ICD Diagnosis: ?Z12.4 Encounter for screening for malignant neoplasm of cervix . CLINICAL INFORMATION Clinical Data, Significant Therapy and Clinical Impression ?? : ?? _ Referring Identifier: ?(not provided) This Pap Test has been evaluated with the assistance of the ThinPrep Pap Test Imaging System. Note: The Pap test is a screening test for cervical cancer with an inherent false-negative rate dependent upon several variables. For further information please contact the [facility] Laboratory. Reference: Danny JARVIS. Clock And Watch Hands Painter of Pap Smear Results. In: Se BS, Kavin HH, ed. ??The Pap Smear. [place]: Keith, 2002: 71-77. [facility] 10/13/2021 12:0 0 PM EDT Narrative Resulting Agency Comment Spec In Lab / WKS Kat Agarwal MD PATHOLOGY/CYTOLOGY ORDERABLES Performing Organization Address [facility] [place] [address] * HPV (10/13/2021 12:00 PM EDT) HPV 16 NEGATIVE NEGATIVE [facility] HPV 18 NEGATIVE NEGATIVE [facility] HPV Other HR NEGATIVE NEGATIVE [facility] HPV Interpretation See Comment [facility] Comment: NEGATIVE for high-risk HPV *. ?? *Testing negative for high risk HPV means that high risk HPV DNA is not detected in the specimen for the following 14 types tested: types 16, 18, 31, 33, 35, 39, 45, 51, 52, 56, 58, 59, 66, and 68. The test is not intended to detect low risk HPV types. ?? Method: Felix emily HPV test (FDA-approved for clinical use) Specimen: HPV Testing ? Cytology Liquid Based Prep This test is validated for cervical specimens only for use in cervical cancer screening. ??Other uses or specimen types are not validated/recommended. Cervical 10/13/2021 12:0 0 PM EDT 10/14/2021 10:14 PM EDT Narrative Resulting Agency Comment Spec In Lab / WKS Kat Agarwal MD PATHOLOGY/CYTOLOGY ORDERABLES Performing Organization Address City/[facility]/ZIP Co de [place] [address] documented in this encounter Visit Diagnoses Not on filedocumented in this encounter Care Teams General Car Supervisor Yard Relationship Specialty Start Date End Date Kat Agarwal MD [address] [place] [address] PCP - General Family Medicine 03/24/21 documented as of this encounter
--- OUTSIDE RECORDS SUMMARY | 2023-11-19 06:57 | XMS_ITS | Encounter Summary ---
Author Organization [facility] [place] [address] [place] [address] Care Team Providers Care Analytical Consultant Name Role Phone Kat Agarwal MD Primary Care Provider +1- [phone] Encounter Details Date Type Department Care Team (Late st Contact Info) Description 04/29/2021 Telephone Otolaryngology at [facility] [place] [address] Gladys Herr RN Social History Tobacco Use Types Packs/Day Years Used Date Smoking Tobacco: Never Smokeless Tobacco: Never Sex and Gender Information Value Date Recorded Sex Assigned at Not on file Gender Identity Not on file Sexual Orientation Not on file documented as of this encounter Miscellaneous Notes * Telephone Encounter - Gladys Herr RN - 04/29/2021 1:03 PM EST Dakotah called after removing her bandage. Surgery was yesterday. Patient reports that the bandage hadsome blood on it and she noted some additional blood in her ear. The blood is not running out of the ear. Advised that some bloody drainage at this point is normal. Advised that this should improve over the next couple days and if it does not we would want to know about that. Also advised that we would not want there to be so much drainage that it is running out of her ear. Patient verbalized understanding and is in agreement with this plan. documented in this encounter Plan of Treatment Not on file documented as of this encounter Visit Diagnoses Not on filedocumented in this encounter Care Teams Analytical Consultant Relationship Specialty Start Date End Date Kat Agarwal MD [address] [place] [address] PCP - General Family Medicine 03/24/21 documented as of this encounter
--- OUTSIDE RECORDS SUMMARY | 2023-11-19 06:57 | XMS_ITS | Encounter Summary ---
Author Organization [facility] [place] [place] [address] Care Team Providers Care Regional Account Manager Name Role Phone Kat Agarwal MD Primary Care Provider +1- [phone] Encounter Details Date Type Department Care Team (Late st Contact Info) Description 07/11/2021 1:00 PM EDT Office Visit Audiology at [address] [address] Jo An AUD [facility] [place] [address] Conductive hearing loss of left ear with unrestricted hearing of right ear; High frequency hearing loss, right Social History Tobacco Use Types Packs/Day Years Used Date Smoking Tobacco: Never Smokeless Tobacco: Never Sex and Gender Information Value Date Recorded Sex Assigned at Not on file Gender Identity Not on file Sexual Orientation Not on file documented as of this encounter Progress Notes * Jo An AUD - 07/11/2021 1:00 PM [place] [address] Dakotah Robin Saleh was seen on 07/11/2021 for an audiologic evaluation in conjunction with Kimo Beltran MD in Otolaryngology. Please refer to the scanned audiogram listed under Procedures for findings, impressions and recommendations. Santa Muller Clinical Director [place] [address] documented in this encounter Plan of Treatment Not on file documented as of this encounter Procedures Procedure Name Priority Date/Time Associated Diagnosis Comments COMPREHENSIVE HEARING TEST Routine 07/11/2021 12:47 PM EDT documented in this encounter Results * Comprehensive hearing test (07/11/2021 12:47 PM EDT) 07/11/2021 12:4 7 PM EDT Narrative AUDBASE COMP - 07/11/2021 12:47 PM EDT RECOMMENDATION: -Follow-up with Kimo Beltran MD in Otolaryngology -Audiologic re-evaluation as per Dr. Beltran or davider if concerns arise Procedure Note Unknown - 07/11/2021 RECOMMENDATION: -Follow-up with Kimo Beltran MD in Otolaryngology -Audiologic re-evaluation as per Dr. Beltran or davider if concerns arise Jo VASQUES AUDIOLOGY SERVI JOEY ORDERABLES AUDBASE COMP documented in this encounter Visit Diagnoses Diagnosis Conductive hearing loss of left ear with unrestricted hearing of right ear High frequency hearing loss, right documented in this encounter Care Teams Regional Account Manager Relationship Specialty Start Date End Date Kat Agarwal MD [address] [place] [address] PCP - General Family Medicine 03/24/21 documented as of this encounter
--- OUTSIDE RECORDS SUMMARY | 2023-11-19 06:58 | XMS_ITS | Encounter Summary ---
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 NERVES, TRUNK OR HEAD TYMPANOPLASTY (WRVU 10.05) GRAFT, EAR CARTILAGE NOSE, EAR (WRVU 7.5) MICROSCOPE USE (WRVU 3.46) FACIAL NERVE MONITORING, SETUP PERIPHERAL (WRVU 0.54) MODIFIER IRIDEX LASER MODIFIER,ENT MODERATE Referral ID Status Reason Start Date Expiration Date Visits Re quested Visits Authorized [id number] 1 1 Encounter Details Date Type Department Care Team (Late st Contact Info) Description 04/28/2021 11:26 AM EST Anesthesia Event [facility] [place] [id number] Radha Beckett MD [facility] [place] [address] Suzie Ramos MD [facility] [place] [address] Anesthesia Record Procedure Summary Procedure Name Responsible Anesthesiologist Anesthesia Start Time Anesthesia Stop Time TYMPANOPLASTY (WRVU 10.05) (Left: Ear) Radha Beckett MD 04/28/21 1126 04/28/21 1515 Events Date Time Event Comment 04/28/2021 1121 1126 AN Verify 1126 Start 1126 An Start Data 1132 An Intubation 1133 An Induction Surgeon request N2O use for Induction 1133 Anesthesia Ready 1133 Quick Note Nitrous started per surgeon request to cause increase in inner ear pressure 1207 Procedure Start 1422 Break/Relief In I assumed ca re for Break Relief before which we: 1. Identified the patient 2. Identified the responsible provider(s) 3. Reviewed the pertinent medical history 4. Discussed the surgical plan and course 5. Reviewed intra-op anesthesia management and issues during anesthesia 6. Set expectations for the relief (and/or post-procedure) period 7. Allowed opportunity for questions and acknowledgement of understanding Tracy Ramos CRNA 1427 Handoff Intra-procedure anesthesia care was transferred after review of the patient's history, current anesthetic/surgical status and procedural plan, anticipated issues and expected post-operative course (including disposition.) Radha Beckett MD 1437 Break/Relief Out 1507 Extubation/LMA Out 1507 an stop data 1515 Recovery or ICU Handoff Miesha ent care was transferred to the destination unit staff after review of the patient's medical history, current anesthetic/surgical status and plan, according to the Provider Handoff Checklist. 1515 Stop Meds Name Total Midazolam 2 mg fentaNYL 100 mcg IV Lidocaine 60 mg Propofol 200 mg Propofol INF 1,525.2 mg Dexmedetomidine 28 mcg Dexamethasone 8 mg Ondansetron 8 mg Ketorolac 30 mg clindamycin (Cleocin) (150 mg/mL) inject ion 600 mg 600 mg lactated ringers infusion 900 mL * Agents Name O2 Air N2O Sevoflurane (et) * Blood No blood administrations on file. Lines, Drains, and Airways Type Details Placement Removal Incision 04/28/21; Left; ear 04/28/21 000 0 by Sarah Harris RN (RETIRED) Peripheral IV Line - Single Lumen 04/28/21; 1108; median cubital vein (antecubital fossa), left; 20 gauge; Iveth SCOTT; distraction, intradermal injection, tolerated well, appears comfortable; site benign ; no longer indicated, catheter/device intact, removed per policy/procedure; 04/28/21; 1615 04/28/21 1108 by Sadaf Conley RN 04/28/21 1615 by Birdie Malik RN Supraglottic Mask Ventilation: No t Attempted (0); LMA Type: air-Q; LMA Size: 4; Inserted by: RG; Removal Date: 04/28/21; Removal Time: 1507 04/28/21 1132 by Ramandeep Moon CRNA 04/28/21 1507 by Ramandeep Moon CRNA documented in this encounter Social History Tobacco Use Types Packs/Day Years Used Date Smoking Tobacco: Never Smokeless Tobacco: Never Sex and Gender Information Value Date Recorded Sex Assigned at Not on file Gender Identity Not on file Sexual Orientation Not on file documented as of this encounter OR Notes * Anesthesia Postprocedure Evaluation - Radha eBckett MD - 04/28/2021 3:37 PM EST Department of Anesthesiology Post-procedure Note Patient: Dakotah Saleh Procedure Summary Date: 04/28/21 Room / Location: 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 Patient Location: PACU/[facility] Level of Consciousness: Conscious but Sleepy Pain Management: Satisfactory Analgesia PONV: None Cardiovascular Status: At Baseline and Hemodynamically Stable Respiratory Status: At Baseline and Supplemental O2 (NC or FM) Postoperative Fluid Status: Intravascular EUvolemia Possible Anesthetic Complications: NONE apparent at time of evaluation Final Primary Anesthesia Type: General (The anesthetic type performed was the same as planned.) Comments: Radha Beckett MD * Anesthesia Preprocedure Evaluation - Maxime Abernathy MD - 04/27/2021 3:17 PM EST Pre-Anesthesia Evaluation for: Dakotah Saleh a 25 y.o. female. Procedure(s): TYMPANOPLASTY (WRVU 10.05) GRAFT, EAR CARTILAGE NOSE, EAR (WRVU 7.5) MICROSCOPE USE (WRVU 3.46) FACIAL NERVE MONITORING, SETUP PERIPHERAL (WRVU 0.54) MODIFIER IRIDEX LASER MODIFIER,ENT MODERATE Patient Active Problem List Diagnosis ??? Tympanic membrane perforation, left TYMPANOPLASTY Patient's Name: Dakotah Saleh Surgery Date: 04/28/2021 Interval Follow Up: Year 1 Post-Op 1 Week 4-6 Weeks 10 Weeks 05/05/21 05/28/21 07/11/21 RIMMA - MD x x RIMMA-AP x AUD 45 PRIOR to appt x No past medical history on file. No past surgical history on file. Social History Tobacco Use ??? Smoking status: Never Smoker ??? Smokeless tobacco: Never Used Substance Use Topics ??? Alcohol use: Not on file Social History Substance and Sexual Activity Drug Use Not on file Allergies Allergen Reactions ??? Amoxicillin Itching Medications: MAR and/or home medications have been reviewed. Physical Exam: Preprocedure Vitals Current as of 04/27/21 1517 No BP, pulse, respiration, SpO2, or temperature recorded. Height: 170.2 cm (5' 7) (02/02/21) Weight: 94.4 kg (208 lb 1.6 oz) (02/02/21) BMI: 32.59 IBW: 61.6 kg (135 lb 13.5 oz) Airway Assessment: Mallampati: II TM distance: >3 FB Neck ROM: full Cardiovascular Assessment: system normal Pulmonary Assessment: pulmonary exam normal Dental Assessment: Misc Assessment: Last Filed Perioperative Cognitive Screening None Anesthesia Plan: ASA 2 general, with a(n) intravenous induction 25 yr old F pmhx ADHD, anxiety, depression, chronic otitis media presenting for tympanoplasty NPO appropriate, denies GERD, >4 mets, ROS negative except as above. Case booked with facial nerve monitoring anest in past without records, no reported issues per surgeon note, no issues reported by patient No labs No imaging Planning IV, LMA Of note, patient reports she is actively menstruating. Offered urine test but declined. Region - Other Informed Consent: Anesthetic plan and risks discussed with patient. Use of blood products discussed with patient who consented to blood products. Plan discussed with GRIT BLASTER. Anesthesia Screening documented in this encounter Plan of Treatment Not on file documented as of this encounter Visit Diagnoses Not on filedocumented in this encounter Administered Medications Inactive Administered Medications - up to 3 most recent administrations Medication Order MAR Action Action Date Dose Rate Site clindamycin (Cleocin) (150 mg/mL) injection 600 mg 600 mg, Intravenous, ONCE, 1 dose, On Lori 04/28/21 at 1100, Routine, Indication for (Active or Suspected): Prophylaxis Given 04/28/2021 11:43 AM EST 600 mg dexamethasone (Decadron) injection Intravenous, PRN, Starting on Lori 04/28/21 at 1140, Until Lori 04/28/21 at 1516, Anesthesia Intra-op, Routine Given 04/28/2021 11:40 AM EST 8 mg dexmedetomidine (Precedex) (4 mcg/mL) bolus injection (Anesthsia) Intravenous, PRN, Starting on Lori 04/28/21 at 1211, Until Lori 04/28/21 at 1516, Anesthesia Intra-op, Routine Given 04/28/2021 1:53 PM EST 8 mcg Given 04/28/2021 1:23 PM EST 8 mcg Given 04/28/2021 12:13 PM EST 4 mcg fentaNYL (pf) (50 mcg/mL) multi-dose injection Intravenous, PRN, Starting on Lori 04/28/21 at 1129, Until Lori 04/28/21 at 1516, Anesthesia Intra-op, Routine Given 04/28/2021 12:52 PM EST 25 mcg Given 04/28/2021 12:15 PM EST 25 mcg Given 04/28/2021 11:48 AM EST 25 mcg ketorolac (Toradol) (30 mg/mL) injection Intravenous, PRN, Starting on Lori 04/28/21 at 1455, Until Lori 04/28/21 at 1516, Anesthesia Intra-op, Routine Given 04/28/2021 2:55 PM EST 30 mg lactated ringers infusion 1,000 mL, at 100 mL/hr, Intravenous, CONTINUOUS, Starting on Lori 04/28/21 at 1045, Until Lori 04/28/21 at 1632, Day of Surgery (Day of Procedure) [facility] 04/28/2021 11:01 AM EST lidocaine (pf) (Xylocaine) (20 mg/mL) 2% injection syringe Intravenous, PRN, Starting on Lori 04/28/21 at 1131, Until Lori 04/28/21 at 1516, Anesthesia Intra-op, Routine Given 04/28/2021 11:31 AM EST 60 mg midazolam (pf) (Versed) (1 mg/mL) multi-dose injection Intravenous, PRN, Starting on Lori 04/28/21 at 1126, Until Lori 04/28/21 at 1516, Anesthesia Intra-op, Routine Given 04/28/2021 11:26 AM EST 2 mg ondansetron (pf) (Zofran) (2 mg/mL) injection Intravenous, PRN, Starting on Lori 04/28/21 at 1143, Until Lori 04/28/21 at 1516, Anesthesia Intra-op, Routine Given 04/28/2021 2:55 PM EST 4 mg Given 04/28/2021 11:43 AM EST 4 mg propofoL (Diprivan) (10 mg/mL) infusion Intravenous, CONTINUOUS PRN, Starting on Lori 04/28/21 at 1142, Until Lroi 04/28/21 at 1516, Anesthesia Intra-op, Routine Rate/Dose Change 04/28/2021 1:50 PM EST 100 mcg/kg/min 55.8 mL/hr New Bag 04/28/2021 11:42 AM EST 75 mcg/kg/min 41.85 mL/ hr propofoL (Diprivan) 10 mg/mL bolus injection (Anesthesia) Intravenous, PRN, Starting on Lori 04/28/21 at 1131, Until Lori 04/28/21 at 1516, Anesthesia Intra-op Given 04/28/2021 11:33 AM EST 50 mg Given 04/28/2021 11:31 AM EST 150 mg documented in this encounter Care Teams Film Laboratory Technician Relationship Specialty Start Date End Date Kat Agarwal MD [address] [place] [id number] PCP - General Family Medicine 03/24/21 documented as of this encounter
--- OUTSIDE RECORDS SUMMARY | 2023-11-19 06:58 | XMS_ITS | Encounter Summary ---
Author Organization [facility] Address [facility] [address] [place] [address] Care Team Providers Care Chief Learning Officer Name Role Phone Preston Hunt MD Primary Care Provider [phone] Reason for Visit * Reason Comments Hearing Loss L side HL. occ itchy on L. * Consultation (Routine) - Closed Specialty Diagnoses / Procedures Referred By Contac t Referred To Contact Otolaryngology Diagnoses Conductive hearing loss, unilateral, left ear, with unrestricted hearing on the contralateral side Central perforation of tympanic membrane, left ear Flako Jordan MD [address] [place] [address] [place] [address] Kimo Beltran MD [facility] [address] [place] [address] Referral ID Status Reason Start Date Expiration Date V isits Requested Visits Authorized [id number] Closed PCP Updated and/or Approved 10/06/2020 10/06/2021 10 10 Encounter Details Date Type Department Care Team (Late st Contact Info) Description 02/02/2021 3:40 PM EDT Office [place] [address] Kimo Beltran MD [facility] [address] [place], [place] [id number] Perforation of left tympanic membrane; 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; Chronic adhesive otitis media, left; Retraction pocket of tympanic membrane of left ear; Conductive hearing loss of left ear with unrestricted hearing of right ear Social History Tobacco Use Types Packs/Day [...] - Inhaled Oxygen Concentration - - Weight 94.4 kg (208 lb 1.6 oz) 02/02/2021 3:35 P M EDT Height 170.2 cm (5' 7) 02/02/2021 3:35 PM EDT Body Mass Index 32.59 02/02/2021 3:35 PM EDT documented in this encounter Progress Notes * Kimo Beltran MD - 02/02/2021 3:40 PM EDT [facility] Otolaryngology - Head and Neck Surgery Kimo Beltran MD 02/02/21 8:30 PM [place] [id number] Office Patient Name: Dakotah Saleh Date of : 1995 PCP: Preston Hunt MD (Inactive) Chief Complaint: ear drum perforation, hearing loss History of Present Illness: Dakotah Saleh is a 25 y.o. year old female with a history of chronic otitis media, ADHD, anxiety,and depression who was seen today at the request of Flako Jordan in consultation for tympanic membrane perforation and conductive hearing loss, left ear. Patient reports that she recently experienced [facility] She apparently experienced an ear infection on the left initially manifesting as otalgia with subjective hearing decline, with symptoms seemingly resolving spontaneously. In April2020, symptoms returned, this time with an associated otorrhea which was intermittently bloody. Shewas seen through urgent care and reportedly placed on antibiotic drops with resolution of her otalgia and otorrhea. In follow-up, she was identified as having an associated tympanic membrane perforation on the left, and was referred to Dr. Flako Jordan MD in otolaryngology. An anterior inferior tympanic membrane perforation was confirmed at patient visit 07/05/2020. She underwent a period of observation to determine if the drum would heal spontaneously. In subsequent follow-up 10/05/2020, examination findings on the left remained unchanged, and she was subsequently referred to Otology for [facility] evaluation. Patient acknowledged a history of chronic otitis media with 2-3 prior sets of tympanostomy tubes bilaterally (Left x 2, right x 3). She reports that she last underwent myringotomy with tympanostomy and tube insertion at age 13. Since this time, she reports an occasional history of brief otalgia on the left after swimming. The last event occurred approximately 1 year prior to her infection issues this past March. She reports that she has generally always been careful to avoid swimming and water exposure. Also reports a past history of tonsillectomy and adenoidectomy. She reports a persistent sense of subjective hearing decline on the left since Meg this past year. She denies any significant right ear complaints. Denies any fluctuating hearing. Denies any significant tinnitus concerns. Denies any significant dizziness or vertigo history. She has never wornhearing aids. She denies any significant occupational or recreational hazardous noise exposure. 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 Patient reports a history of seasonal allergic rhinitis, but denies any recent issues for the past several years. Denies any asthma history. Reports occasional symptomatic acid reflux symptoms for which she has achieved effective relief with [id number] Tums when needed. She denies any significant sinonasal symptoms. She specifically denies any history of recurrent acute or chronic sinusitis. Patient is a non-smoker. Patient denies any neck mass, chronic sore throat, odynophagia, dysphagia, or significant weight loss. No known FH early onset hearing loss. Denies any significant head trauma history. Denies headaches, visual symptoms or other focal neurologic concerns. No regular qtip use or ear flushing. Audiogram 02/02/2021 personally reviewed. Findings reveal normal thresholds on the right. On the left, patient exhibits a moderate rising to mild conductive hearing loss. Bone-conduction thresholds are symmetric. Speech receptionist doctor's office thresholds at 5 dB for the right and 30 dB for the left. Excellent bilateral discrimination. Normal tympanogram on the right. Large volume flat tympanogram on the left. Outside audiogram 10/05/2020 personally reviewed. Findings reveal normal thresholds on the right. Onthe left, patient exhibits a moderate rising to mild conductive hearing loss. Bone-conduction thresholds are symmetric. Speech receptionist doctor's office thresholds at 0 dB for the right and 25 dB for the left. Excellent bilateral discrimination. Normal tympanogram on the right. Flat tympanogram on the left. 10 point Review of Systems was normal except for pertinent positives and negatives included in the History of Present Illness. Past Medical and Surgical History There is no problem list on file for this patient. chronic otitis media, ADHD, anxiety, and depression No current outpatient medications on file prior to visit. No current facility-administered medications on file prior to visit. Allergies: Amoxicillin Surgical History: No past surgical history on file. Multiple BMT T&A Family and Social History Family History: No family history on file. Social History: [place] [id number] Social History Socioeconomic History ??? Marital status: Single Spouse name: Not on file ??? Number of children: Not on file ??? Years of education: Not on file ??? Highest education level: Not on file Occupational History ??? Not on file Tobacco Use ??? Smoking status: Never Smoker ??? Smokeless tobacco: Never Used Substance and Sexual Activity ??? Alcohol use: Not on file ??? Drug use: Not on file ??? Sexual activity: Not on file Other Topics Concern ??? Not on file Social History Narrative ??? Not on file Social Determinants of Health Financial Resource Strain: ??? Difficulty of Paying Living Expenses: Not on file Food Insecurity: ??? Worried About Running Out of Food in the Last Year: Not on file ??? Ran Out of Food in the Last Year: Not on file Transportation Needs: ??? Lack of Transportation (Medical): Not on file ??? Lack of Transportation (Non-Medical): Not on file Physical Activity: ??? Days of Exercise per Week: Not on file ??? Minutes of Exercise per Session: Not on file Housing Stability: ??? Unable to Pay for Housing in the Last Year: Not on file ??? Number of Places Lived in the Last Year: Not on file ??? Unstable Housing in the Last Year: Not on file Physical Exam Temperature: Heart Rate: Blood Pressure: Respiratory Rate: SpO2: General: Alert and oriented. No acute distress. Head and Face: Head is normocephalic, atraumatic. Facial resting tone symmetric. Eyes: Conjugate gaze, ocular motility intact bilaterally. No spontaneous or gaze evoked nystagmus. Neurologic: Cranial Nerves II-XII grossly intact and symmetric. Ears: External ears without deformity. See documentation of otomicroscopy below. Tuning forks: Moss lateralizes left; BC>AC left, AC>BC right. Nose: External nose is midline without deformity or lesion. Nasal septum is deviated. Normal turbinates. Oral: There are no visible or palpable buccal, gingival, lingual, or palatal lesions. The floor of mouth is soft and flat. Oropharynx: Tonsils absent. Normal tonsillar fossa, soft palate, and posterior pharynx. Salivary: Normal exam of the parotid and submandibular glands. Hem/Lymph/Imm: Neck supple without cervical mass or lymphadenopathy. Skin: Skin survey of the head and neck is without concerning lesion. MSK: Normal neck range of motion. No trismus. Resp: Breathing comfortably without stridor or retractions. Normal respirations. CV: Normal carotid pulses. Psych: Normal mood and affect. Labs and Imaging Significant lab values are as follows: n/a I reviewed the following imaging studies: n/a Procedures Ears examined and cleaned with aid of binocular microscopy. Right Ear: Auricle normal. External auditory canal clear. Drum is intact with normal mobility via pneumatic otoscopy. No appreciable retraction, and pars flaccida region clear. Posterior focal myringosclerosis. Middle ear is well aerated. Negative fistula test. Left Ear: Auricle normal. External auditory canal clear. Drum with an approximate 25% anterior inferior, central, dry tympanic membrane perforation. Findings also reveal a grade 4 posterior superior retraction with associated myringoincudopexy. No accumulated debris. No significant scutal erosion. No obvious incus erosion. Remnant drum is thickened. Pars flaccida region clear. Visualized middle ear mucosa is clear. ASSESSMENT & RECOMMENDATIONS Dakotah Saleh is a 25 y.o. female with history of chronic otitis media, ADHD, anxiety, and depression who presents with history of recent ear infection on the left manifesting as otalgia, otorrhea and subjective hearing decline, with symptoms largely improving following treatment with ototopical antibiotic drops. However, she has been aware of a persistent hearing loss on this side for the pastyear. Patient does also acknowledge a history of recurrent otalgia on the left with water exposure without roland infections. Past history of childhood chronic otitis media with presumed Eustachian tube dysfunction and multiple prior tympanostomy tubes bilaterally, most recently as an adolescent. Examination findings on the left include an approximate 25% anterior inferior, central, dry tympanic membrane perforation, as well as a grade 4 posterior superior retraction with associated myringoincudopexy. No accumulated debris. No significant scutal erosion. No obvious incus erosion. Audiogram with moderate rising to mild conductive hearing loss on the left, with normal thresholds on the right. Examination findings and audiometric testing results were reviewed with the patient today. Therapeutic options for the left ear were discussed to include continued observation, with or without hearing aid. We also discussed our recommendations regarding consideration to surgical intervention for the left ear. We discussed goals of surgery aimed at mitigating risk for recurrent infections, mitigating risk for potential evolving cholesteatoma, as well as efforts to improve her hearing on this side. I discussed risks specific to left ear cartilage tympanoplasty, possible mastoidectomy, possible ossicular chain reconstruction, including risks of bleeding, pain, ear numbness, infection, taste disturbance, facial paralysis, vertigo, total hearing loss, perforation, cholesteatoma, injury to brain,and anesthetic risks. All questions were answered to her satisfaction. She expressed an interest in proceeding with surgery as outlined above, and will be referred to surgical scheduling. Patient verbally expressed understanding and was in agreement with the plan as outlined above. Our contact information was provided should any significant questions, concerns or problems arise prior to planned follow-up. Thank you for this interesting consultation and for allowing us to participate in this patient's care. 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
--- OUTSIDE RECORDS SUMMARY | 2023-11-19 06:58 | XMS_ITS | Encounter Summary ---
Author Organization [facility] Address [facility] [address] [place] [address] Care Team Providers Care Manager [employer] Name Role Phone Preston Hunt MD Primary Care Provider [phone] Reason for Visit * Consultation (Routine) - Closed Specialty Diagnoses / Procedures Referred By Arthur dickson Referred To Contact Otolaryngology Diagnoses Conductive hearing loss, unilateral, left ear, with unrestricted hearing on the contralateral side Central perforation of tympanic membrane, left ear Flako Jordan MD [address] [place] [address] [place] [address] Kimo Beltran MD [facility] [place] [address] Referral ID Status Reason Start Date Expiration Date V isits Requested Visits Authorized [id number] Closed PCP Updated and/or Approved 10/06/2020 10/06/2021 10 10 Encounter Details Date Type Department Care Team (Late st Contact Info) Description 02/02/2021 2:30 PM EDT Office Visit Audiology at [address] [phone] Sarah Eid AUD [facility] [place] [address] Conductive hearing loss of left ear with unrestricted hearing of right ear Social History Tobacco Use Types Packs/Day Years Used Date Smoking Tobacco: Never Smokeless Tobacco: Never Sex and Gender Information Value Date Recorded Sex Assigned at Not on file Gender Identity Not on file Sexual Orientation Not on file documented as of this encounter Progress Notes * Sarah Eid AUD - 02/02/2021 2:30 PM ED[place] [address] Dakotah Saleh was seen on 02/02/2021 for an audiologic evaluation in conjunction with Dr. Devin Apple. Please refer to the scanned audiogram listed under Procedures for findings, impressions and recommendations. [place] Clinical Vehicle Assembly Inspector [facility] [place] [address] documented in this encounter Plan of Treatment Not on file documented as of this encounter Procedures Procedure Name Priority Date/Time Associated Diagnosis Comments COMPREHENSIVE HEARING TEST Routine 02/02/2021 2:21 PM EDT documented in this encounter Results * Comprehensive hearing test (02/02/2021 2:21 PM EDT) 02/02/2021 2:21 PM EDT Narrative [facility] - 02/02/2021 2:21 PM EDT Follow up with Dr. Beltran as scheduled. Procedure Note Unknown - 02/02/[address] Beltran as scheduled. Unknown AUDIOLOGY SERVICES [facility] documented in this encounter Visit Diagnoses Diagnosis Conductive hearing loss of left ear with unrestricted hearing of right ear documented in this encounter Care Teams Manager Army Relationship Specialty Start Date End Date Preston Hunt MD [address] [place] [address] PCP - General 03/15/10 03/23/21 documented as of this encounter
--- OUTSIDE RECORDS SUMMARY | 2023-11-19 06:58 | XMS_ITS | Encounter Summary ---
Author Organization [facility] Address [facility] [place] [address] [place] [address] Care Team Providers Care Resistor Inspector Name Role Phone Kat Agarwal MD Primary Care Provider [phone] Reason for Visit * Auth/Cert Specialty Diagnoses [...] Expiration Date Visits Re quested Visits Authorized [id number] 1 1 Encounter Details Date Type Department Care Team (Latest Contact Info) Description 04/28/2021 10:22 AM EST - 04/28/2021 4:30 PM EST Hospital Encounter [place] [address] Kimo Beltran MD [facility] [place] [address] Perforation of left tympanic membrane; 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; Chronic adhesive otitis media, left; Retraction pocket of tympanic membrane of left ear; Conductive hearing loss of left ear with unrestricted hearing of right ear Discharge Disposition: Home Social History Tobacco Use Types Packs/Day Years Used Date Smoking Tobacco: Never Smokeless Tobacco: Never Sex and Gender Information Value Date Recorded Sex Assigned at Not on file Gender Identity Not on file Sexual Orientation Not on file documented as of this encounter Last Filed Vital Signs Vital Sign Reading Time Taken Comments Blood Pressure 118/71 04/28/2021 3:45 PM EST Pulse 65 04/28/2021 4:00 PM EST Temperature 36.3 ??C (97.3 ??F) 04/28/2021 3:10 PM ES T Respiratory Rate 16 04/28/2021 3:45 PM EST Oxygen Saturation 100% 04/28/2021 4:00 PM EST Inhaled Oxygen Concentration - - Weight 93 kg (205 lb) 04/28/2021 10:38 AM EST Height 170.2 cm (5' 7) 04/28/2021 10:38 AM EST Body Mass Index 32.11 04/28/2021 10:38 AM EST documented in this encounter Discharge Instructions * Discharge Instructions* Birdie Malik RN - 04/28/2021 3:46 PM EST At 10:45 am you received 1000 mg of acetaminophen- Your next dose should not be taken before 8 hours have passed. Next dose not before- 6:45 pm You should not take more than a total of 3000 mg of acetaminophen in a 24 hour period. You received Toradol (Ibuprofen/nsaid medication) at 3:00 pm. Your next Dose of Ibuprofen should not be taken before 9:00 pm today. General Anesthesia Discharge Instructions Go home and rest. You may be sleepy for several hours. Take it easy as sudden position changes may cause nausea and/or dizziness. Use caution on stairs. Do not smoke if you are alone. Follow a light to regular diet as tolerated today. If nausea occurs, start with clear liquids, and progress slowly to a regular diet. Do not drive, operate machinery, drink alcoholic beverages or make any legal decisions after havinggeneral anesthesia. The medications given change your reaction time and alter your judgement. IV site -- slight redness is normal, you can use warm compresses. If tenderness and redness increases or foul drainage occurs, please contact your M.D. Patients who have had endotracheal tubes/LMA (tubes used by the anesthesia staff to ensure a safe airway during your operation) may have a sore throat. This is normal and cold liquids or soothing lozenges will help ease this discomfort. Narcotic pain medications can cause constipation, please ask the surgeons office what they recommend for prevention of this. Some non-pharmaceutical means of constipation prevention include increasing intake of fluids, eating more fruits and vegetables as well as fruit juices. If you are uncomfortable and/or unable to urinate within 8 hours of discharge and it is before 5 pm, call your physician. If it is after 5pm go to the closest emergency room or call the hospital pulley mortiser operator at [phone] and ask for physician air defense control officer covering for your physician. Questions or problems after 5pm or on a weekend: Call the [facility] pulley mortiser operator at and ask for the physician air defense control officer covering for your doctor. * Patient Instructions* Kimo Beltran MD - 04/28/2021 3:27 PM EST POSTOPERATIVE INSTRUCTIONS FOR PATIENTS UNDERGOING CHRONIC EAR, MIDDLE EAR OR STAPES SURGERY 1. DO NOT blow you nose for 3 weeks following surgery. If you sneeze or cough do so with your mouthopen. 2. Avoid any heavy lifting (over 10 lbs.), straining, or bending for three weeks following surgery. 3. Keep your head elevated as much as possible. Sleep and rest on two or three pillows if possible. 4. Do no get water in you ear. If showering or washing your hair place a piece of cotton coated in Vaseline in the ear canal to seal it. If there is a separate incision, keep this dry until your first postoperative visit. 5. If you wear glasses, either remove the arm on the operated side or make certain that it does notrest on the incision behind your ear for one week. 6. Beginning one day after surgery try to leave the cotton out of your ear as much as possible unless there is significant drainage. 7. Some of the drainage from your ear canal may occur after surgery. If there is a separate incision some drainage may occur from this area also. If the drainage is profuse or develops a foul odor, call the Department of Otolaryngology - Head and Neck Surgery. 8. Popping sounds, a plugged sensation, ringing or fluctuating hearing may be noticed in the ear during the healing. 9. Avoid travel by air for three weeks following surgery. 10. If you should notice any swelling, redness, or excessive pain, please call the Department of Otolaryngology - Head and Neck Surgery. 11. Some dizziness may occur after surgery. If it becomes severe or is associated with nausea or vomiting, call the Department of Otolaryngology - Head and Neck Surgery. 12. You should be seen for follow-up evaluation 7-10 days after surgery, unless otherwise stated byyour surgeon. Please call the Department of Otolaryngology - Head and Neck Surgery for an appointment if one has not been scheduled for you in advance. 13. Should any problems or questions arise, please call the Department of Otolaryngology - Head andNeck Surgery (ENT Department). Contact: -You can reach the ENT clinic at [phone] for appointment questions. -The ENT triage nurse is available at [phone] -For urgent issues during evenings and weekends the ENT resident air defense control officer can be reached through [facility] pulley mortiser operator at [phone] Follow Up: You will need to follow up with ENT in 7-10 days. This appointment has been requested. You will be notified once it is scheduled, if you do not already see it below. If you do not hear from us in a timely manner, please call to receive your date and time. Currently Scheduled Appointments: Future Appointments and Orders Future Appointments and Orders Future Appointments Provider Department Dept Phone 05/09/2021 1:20 PM Yan El PA Otolaryngology at [facility] Arrive at: [employer] Area [phone] 05/30/2021 10:00 AM Kimo Beltran MD Otolaryngology at [facility] Arrive at: [employer] [phone] 07/11/2021 1:00 PM Kelsi Gil AUD; AUDIOLOGY, [facility] Audiology at [facility] Arrive at: [employer] Area [phone] 07/11/2021 1:40 PM Kimo Beltran MD Otolaryngology at [facility] Arrive at: [employer] Area [phone] documented in this encounter Medications at Time of Discharge Medication Sig Dispensed Refills Start Date End Date clindamycin (CLEOCIN) 300 mg Capsule Take 1 capsule by mouth 3 times daily for 7 days. 21 capsule 04/28/2021 05/05/2021 ciprofloxacin-dexametha sone (Ciprodex) 0.3-0.1 % Drops, Suspension Place 4 drops into the left ear 2 times daily. 7.5 mL 3 04/28/2021 07/11/2021 documented as of this encounter Progress Notes * Birdie Malik RN - 04/28/2021 4:30 PM EST Discharge instructions and medications reviewed with patient and dad, maru. They verbalized understanding. All questions answered and written copy sent home with patient. Prescription escribed to their local pharmacy per Devin, they are aware to meat pickler. They were reviewed. Patient/escort encouragedto call with questions or concerns. Patient ambulated to car for discharge accompanied by [facility] staff member. documented in this encounter H&P Notes * Kimo Beltran MD - 04/28/2021 10:38 AM EST 24-Hour Pre-Operative H&P Update Patient was seen in the Pre-Operative Area today. I have reviewed, and agree with, the clinical history, physical examination findings, impression, and plan, as detailed in the original H&P Note. The patient was cleared for surgery. Tympanoplasty, left ear Interval History: The patient's history and physical exam have been reviewed and completed. There has been no interval change from that of the pre-operative history and physical exam done within the last 30 days. Medications: No outpatient medications have been marked as taking for the 04/28/21 encounter (Hospital Encounter). Allergies: Amoxicillin Impression: Maru is a 25 y.o. female with a history of tympanic membrane perforation with adhesive otitis media and conductive hearing loss, left ear. Plan: -ready to proceed with the planned surgical procedure, tympanoplasty, possible mastoidectomy, possible ossicular chain reconstruction, left ear. Kimo Beltran MD Otology and Neurotology Otolaryngology - Head & Neck Surgery Pgr: [phone] documented in this encounter Miscellaneous Notes * Op Note - Kimo Beltran MD - 04/28/2021 12:07 PM EST [facility] Operative Note Patient Name: Maru Saleh : [id number] MR#: [id number] Case Date: 04/28/2021 Surgeon: Surgeon(s) and Role: * Kimo Beltran MD - Primary Preoperative diagnosis: chronic suppurative otitis media, tympanic membrane perforation, conductivehearing loss, left ear Postoperative diagnosis: chronic suppurative otitis media, tympanic membrane perforation, conductive hearing loss, left ear Procedure(s) (LRB): TYMPANOPLASTY (WRVU 10.05) (Left) GRAFT, EAR CARTILAGE NOSE, EAR (WRVU 7.5) (Left) MICROSCOPE USE (WRVU 3.46) (Left) FACIAL NERVE MONITORING, SETUP PERIPHERAL (WRVU 0.54) (N/A) MODIFIER IRIDEX LASER (N/A) MODIFIER,ENT MODERATE (N/A) Anesthesia: General Estimated Blood Loss: * No values recorded between 04/28/2021 12:07 PM and 04/28/2021 3:00 PM * Specimens removed during surgery: None Drains: * No LDAs found * Surgical Closure: Primary Closure - skin incision is completely closed without any wires, marcy, drains or other devices Disposition: awakened from anesthesia, extubated and taken to the recovery room in a stable condition, having suffered no apparent untoward event. Condition: doing well without problems (Please see the Surgical Encounter Summary for any Implant and Specimen details pertinent to this patient.) HPI/Surgical Indications: chronic suppurative otitis media with tympanic membrane perforation, grade IV posterior superior retraction of remnant drum with myringoincudopexy and conductive hearing loss, right ear. Surgical Findings: Postauricular approach. Large anterior inferior central, [...] fibrous adhesions posterior superior mesotympanum released from surroundingstructures. Iridex laser used to de-epithelialize margins of perforation and for release of remnantdrum from malleus manubrium and umbo. Repair with Biodesign otologic graft. Procedure Description: The patient was taken to the main operating room and laid supine on the operating room table. Proper informed consent was ensured, and the patient was positively identified. Once general anesthesia was established, the table was rotated 180 degrees. The patient was positioned supine on the table with the head turned to the left to expose the left ear. A formal surgical timeout was performed with all in attendance ensuring proper site, side, patient and procedure. All were in agreement. Monitoring electrodes were then placed in the orbicularis oculi and orbicularis pablo muscles. Ground and stimulating electrodes were then positioned. All electrodes were then connected to the nerve monitor. Atap test was performed to confirm correct functioning. A standard shave and prep of the left ear was then performed. Local anesthesia and a field block were achieved using approximately 2 cc of solution containing 1% lidocaine with 1 to 100,000 units epinephrine. The patient was then prepped and draped in the usual sterile fashion. The operating microscope was brought into the field and used for the remainder of the case for illumination and magnification. Modified H flap incisions were made down into the canal. Adrenaline soaked Gelfoam was then placed within the canal for hemostasis. A postauricular incision was then made and carried down to the level of the deep temporalis fascia. Bovie electrocautery was employed as a T-shaped incision was made over the area of the mastoid and down through the periosteum. A periostealelevator was then used to widely expose the mastoid bone. Dissection proceeded anteriorly in a subperiosteal plane as the ear was reflected forward in the canal exposed and communicated with the previously made canal incisions. There was a large anterior inferior tympanic membrane perforation with grade IV retraction of the remnant drum posterior superiorly. Dissection of the medially based tympanomeatal flap proceeded downto the level of the annulus. The margins of the perforation were then de-epithelialized using the Iridex laser. With the tympanomeatal flap reflected forward, the middle ear was then entered under the annulus in the posterior inferior quadrant. Elevation of the drum proceeded anteriorly and superiorly.The chorda tympani nerve was identified and preserved. Numerous adhesions surrounding the ossicles were carefully taken down. Associated surgical findings as noted above. The drum was released from the lateral surface of the malleus for wide exposure of the middle ear space. The Eustachian tube orifice was clear. There was no evidence of roland cholesteatoma. The wound was copiously irrigated with normal saline. Attention was then directed towards closure. A Biodesign otologic graft was fashioned on the back table. The graft was then positioned medial to the tympanic membrane remnant and lateral to the malleus and carried over the posterior and superior bony canal burnett. The graft and drum remnant were then elevated. The middle ear was packed with several pieces of Floxin soaked Gelfoam packing. The remnant tympanomeatal flap and graft were then laid back across the canal . Excellent coverage of the defect within the remnant drum was appreciated. Floxin soaked Gelfoam was then placed lateral to the remnant drum and graft and carried to approximate the posterior and lateral aspect of the tympanomeatal flap. The ear was then reflected back posteriorly, and the vascular strip was unfurled. The postauricular wound was then closed in layers using absorbable suture. Further Gelfoam packing was then placed externally within the canal and carried to the level of the meatus. A bacitracin coated piece of cotton was placed at the meatus. Mastisol and steri-strips were applied to the postauricular incision line. A Telfa dressing was positioned over the incision, and a mastoid compression dressing was placed. The case was subsequently terminated. All sponge and instrument counts were correct. There were no noted complications. The patient appeared to tolerate the procedure well. The patient was awakened from general anesthesia without incident returned to recovery room in stable condition. Of note, in recovery, the patient was noted to have normal and symmetric facial nerve function. Infection Bundle used? No Attestation: Case Date: 04/28/2021 I performed this procedure without the involvement of a resident. 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 Chronic adhesive otitis media, left Retraction pocket of tympanic membrane of left ear Conductive hearing loss of left ear with unrestricted hearing of right ear Ear Cartilage Graft To Face ([id number]) 04/28/2021 11:25 AM EST Perforation of left tympanic membrane 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 Chronic adhesive otitis media, left Retraction pocket of tympanic membrane of left ear Conductive hearing loss of left ear with unrestricted hearing of right ear Tympanoplasty ([id number]) 04/28/2021 11:25 AM EST Perforation of left tympanic membrane 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 Chronic adhesive otitis media, left Retraction pocket of tympanic membrane of left ear Conductive hearing loss of left ear with unrestricted hearing of right ear FACIAL NERVE MONITORING, SETUP Routine 04/28/2021 10:26 AM EST Perforation of left tympanic membrane 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 Chronic adhesive otitis media, left Retraction pocket of tympanic membrane of left ear Conductive hearing loss of left ear with unrestricted hearing of right ear MICROSCOPE USE Routine 04/28/2021 10:26 AM EST Perforation of left tympanic membrane 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 Chronic adhesive otitis media, left Retraction pocket of tympanic membrane of left ear Conductive hearing loss of left ear with unrestricted hearing of right ear TYMPANOPLASTY Routine 04/28/2021 10:26 AM EST Perforation of left tympanic membrane 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 Chronic adhesive otitis media, left Retraction pocket of tympanic membrane of left ear Conductive hearing loss of left ear with unrestricted hearing of right ear GRAFT, EAR CARILAGE NOSE, EAR Routine 04/28/2021 10:26 AM EST Perforation of left tympanic membrane 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 Chronic adhesive otitis media, left Retraction pocket of tympanic membrane of left ear Conductive hearing loss of left ear with unrestricted hearing of right ear documented in this encounter Visit Diagnoses Diagnosis Perforation of left tympanic membrane Perforation of tympanic membrane, unspecified 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 Chronic tubotympanic suppurative otitis media Chronic adhesive otitis media, left Retraction pocket of tympanic membrane of left ear Conductive hearing loss of left ear with unrestricted hearing of right ear documented in this encounter Administered Medications Inactive Administered Medications - up to 3 most recent administrations Medication Order MAR Action Action Date Dose Rate Site acetaminophen (Tylenol) tablet 1,000 mg 1,000 mg, Oral, ONCE, 1 dose, On Lori 04/28/21 at 1045, Administer with SIP of H2O only., Day of Surgery (Day of Procedure), Routine Given 04/28/2021 10:43 AM EST 1,000 mg documented in this encounter Active and Recently Administered Medications Times are shown in EST. Scheduled Medication Order 04/26/2021 04/27/2021 04/28/2021 acetaminophen (Tylenol) tablet 1,000 mg (COMPLETED) 1,000 mg, Oral, ONCE, 1 dose, On Lori 04/28/21 at 1045, Administer with SIP of H2O only., Day of Surgery (Day of Procedure), Routine 1043 (Given - Provid er: Sadaf Mendiola RN) clindamycin (Cleocin) (150 mg/mL) injection 600 mg (COMPLETED) 600 mg, Intravenous, ONCE, 1 dose, On Lori 04/28/21 at 1100, Routine, Indication for (Active or Suspected): Prophylaxis 1143 (Given - Provid er: Ramandeep Moon CRNA) Continuous Medication Order 04/26/2021 04/27/2021 04/28/2021 lactated ringers infusion (CANCELED) 1,000 mL, at 100 mL/hr, Intravenous, CONTINUOUS, Starting on Lori 04/28/21 at 1045, Until Lori 04/28/21 at 1632, Day of Surgery (Day of Procedure) 1101 (New Bag - Prov ider: Ramandeep Moon CRNA)1320 (Anesthesia Volume Adjustment - Provider: Ramandeep Moon CRNA)1500 (Anesthesia Volume Adjustment - Provider: Ramandeep Moon CRNA) PRN Medication Order 04/26/2021 04/27/2021 04/28/2021 bacitracin ointment (CANCELED) ONCE PRN, Starting on Lori 04/28/21 at 1439, Until Lori 04/28/21 at 1835, Intra-Operative (Intra-Procedure) 1439 (Given - Provid er: Kimo Beltran MD) ciprofloxacin-hydrocortisone (Cipro HC Otic) 0.2-1 % otic suspension (CANCELED) ONCE PRN, Starting on Lori 04/28/21 at 1228, Until Lori 04/28/21 at 1835, Intra-Operative (Intra-Procedure), Routine 1228 (Given - Provid er: Kimo Beltran MD) EPINEPHrine (Adrenalin) nasal solution (CANCELED) ONCE PRN, Starting on Lori 04/28/21 at 1228, Until Lori 04/28/21 at 1835, Intra-Operative (Intra-Procedure), Routine 1228 (Given - Provid er: Kimo Beltran MD) gelatin compressed (Gelfoam) sponge (CANCELED) ONCE PRN, Starting on Lori 04/28/21 at 1438, Until Lori 04/28/21 at 1835, Intra-Operative (Intra-Procedure) 1438 (Given - Provid er: Kimo Beltran MD) lidocaine-EPINEPHrine 2% - 1:100,000 injection cartridge (CANCELED) ONCE PRN, Starting on Lori 04/28/21 at 1438, Until Lori 04/28/21 at 1835, Intra-Operative (Intra-Procedure) 1438 (Given - Provid er: Kimo Beltran MD) No Frequency Medication Order 04/26/2021 04/27/2021 04/28/2021 clindamycin (Cleocin) 600 mg/50 mL infusion 1 dose, Starting on Lori 04/28/21 at 1041, Until Lori 04/28/21 at 1835, SADAF MENDIOLA: cabinet override 1045 (Due) documented in this encounter Care Teams Resistor Inspector Relationship Specialty Start Date End Date Kat Agarwal MD [address] [place] [address] PCP - General Family Medicine 03/24/21 documented as of this encounter
--- OUTSIDE RECORDS SUMMARY | 2023-11-19 06:58 | XMS_ITS | Encounter Summary ---
Author Organization [facility] [address] [place] [address] Care Team Providers Care Mirror Inspector Name Role Phone Preston Hunt MD Primary Care Provider [phone] Encounter Details Date Type Department Care Team ([facility] st Contact Info) Description 03/04/2021 Telephone Otolaryngology at [facility] [place] [address] Suly Enriquez Social History Tobacco Use Types Packs/Day Years Used Date Smoking Tobacco: Never Smokeless Tobacco: Never Sex and Gender Information Value Date Recorded Sex Assigned at Not on file Gender Identity Not on file Sexual Orientation Not on file documented as of this encounter Miscellaneous Notes * Telephone Encounter - Suly Enriquez - 03/04/2021 3:26 PM EST [place], Patient is scheduled to have surgery on 04/28/2020 and the packet has been mailed to the verified address on file. Follow up appointment is as follows: Follow up: 1 week with nurse, then 4-6 weeks Thank you!! documented in this encounter Plan of Treatment Not on file documented as of this encounter Visit Diagnoses Not on filedocumented in this encounter Care Teams Mirror Inspector Relationship Specialty Start Date End Date Preston Hunt MD [address] [place] [id number] PCP - General 03/15/10 03/23/21 documented as of this encounter
--- OUTSIDE RECORDS SUMMARY | 2023-11-19 06:58 | XMS_ITS | Encounter Summary ---
Author Organization Formerly [facility] Address [facility] [place] [address] [place] [address] Care Team Providers Care Sensor Operator Name Role Phone Kat Agarwal MD Primary Care Provider [phone] Reason for Visit * Auth/Cert Specialty Diagnoses [...] Expiration Date Visits Re quested Visits Authorized [id number] 1 1 Encounter Details Date Type Department Care Team (Late st Contact Info) Description 04/28/2021 11:50 AM EST - 04/28/2021 4:05 PM EST Surgery [place] [id number] Kimo Beltran MD [facility] [place] [address] TYMPANOPLASTY (WRVU 10.05) Social History Tobacco Use Types Packs/Day Years [...] closest emergency room or call the hospital staining machine operator at [phone] and ask for physician electronics teacher covering for your physician. Questions or problems after 5pm or on a weekend: Call the [facility] staining machine operator at and ask for the physician electronics teacher covering for your doctor. * Patient Instructions* [...] -You can reach the ENT clinic at [phone] for appointment questions. -The ENT triage nurse is available at [phone] -For urgent issues during evenings and weekends the ENT resident electronics teacher can be reached through [facility] staining machine operator at [phone] Follow Up: You will need to follow [...] 1:20 PM Yan El PA Otolaryngology at [facility] Arrive at: Cytologist Area [phone] 05/30/2021 10:00 AM Kimo Beltran MD Otolaryngology at [facility] Arrive at: Cytologist Area [phone] 07/11/2021 1:00 PM Kelsi Gil AUD; AUDIOLOGY, [facility] Audiology at [facility] Arrive at: Cytologist Area [phone] 07/11/2021 1:40 PM Kimo Beltran MD Otolaryngology at [facility] Arrive at: Cytologist Area [phone] documented in this encounter Medications at Time [...] pharmacy per Devin, they are aware to bean picker. They were reviewed. Patient/escort encouragedto call with [...] Beltran MD - 04/28/2021 12:07 PM EST [facility] Operative Note Patient Name: Maru Saleh : [id number] MR#: [id number] Case Date: 04/28/2021 Surgeon: Surgeon(s) and Role: [...] Test, Any/All Per. 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 Chronic adhesive otitis media, left Retraction pocket of tympanic membrane of left ear Conductive hearing loss of left ear with unrestricted hearing of right ear Ear Cartilage Graft To Face ([id number]) 04/28/2021 11:25 AM EST Perforation of left tympanic membrane 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 Chronic adhesive otitis media, left Retraction pocket of tympanic membrane of left ear Conductive hearing loss of left ear with unrestricted hearing of right ear Tympanoplasty ([id number]) 04/28/2021 11:25 AM EST Perforation of left [...] Given 04/28/2021 10:43 AM EST 1,000 mg bacitracin ointment ONCE PRN, Starting on Lori 04/28/21 at 1439, Until Lori 04/28/21 at 1835, Intra-Operative (Intra-Procedure) Given 04/28/2021 2:39 PM EST 1 Tube 19- Surgical Site ciprofloxacin-hydrocort isone (Cipro HC Otic) 0.2-1 % otic suspension ONCE PRN, Starting on Lori 04/28/21 at 1228, Until Lori 04/28/21 at 1835, Intra-Operative (Intra-Procedure), Routine Given 04/28/2021 12:28 PM EST 1 Bottle 19- Surgical Site EPINEPHrine (Adrenalin) nasal solution ONCE PRN, Starting on Lori 04/28/21 at 1228, Until Lori 04/28/21 at 1835, Intra-Operative (Intra-Procedure), Routine Given 04/28/2021 12:28 PM EST 30 mLs 19- Surgical Site gelatin compressed (Gelfoam) sponge ONCE PRN, Starting on Lori 04/28/21 at 1438, Until Lori 04/28/21 at 1835, Intra-Operative (Intra-Procedure) Given 04/28/2021 2:38 PM EST 100 cm 19- Surgical Site lidocaine-EPINEPHrine 2% - 1:100,000 injection cartridge ONCE PRN, Starting on Lori 04/28/21 at 1438, Until Lori 04/28/21 at 1835, Intra-Operative (Intra-Procedure) Given 04/28/2021 2:38 PM EST 1.8 mLs 19- Surgical Site documented in this encounter Active and Recently [...] (Due) documented in this encounter Care Teams Sensor Operator Relationship Specialty Start Date End Date Kat Agarwal MD [address] [place] [id number] PCP - General Family Medicine 03/24/21 documented as of this encounter
[2023-11-19] MEDS: Lactated Ringers 1,000 ML 100 ML IV (07:33)
--- NOTE | 2023-11-19 07:55 | W.ANESPRE ---
General Info Date of Service Date Performed: 11/19/23 Height: 5 ft 8.5 in Weight: 101 kg Body Mass Index (BMI): 33.3 Surgical Procedure: Operation Date: 11/19/23 08:25 Proposed Procedure Side Surgeon p Bx of Tongue Base w/Direct Visualization Under General Flako Jordan MD Meds Allergies and Home Medications Allergies Allergy/AdvReac Type Severity Reaction Status Date / Time amoxicillin (From Augmentin) Allergy Mild Skin Rash Verified 11/19/23 07:18 clavulanic acid Allergy Skin Rash Verified 11/19/23 07:18 bupropion AdvReac jittery Verified 11/19/23 07:18 hydrocodone AdvReac dysesthesia Verified 11/19/23 07:18 Home Medication ?Medication ?Instructions ?Recorded acetaminophen 325 mg capsule 325 mg PO ONCE PRN 09/06/23 bupropion HCl 150 mg 24 hr tablet, 150 mg PO DAILY 09/06/23 extended release calcium carbonate (Calcium Antacid) 200 mg PO BID 09/06/23 melatonin 5 mg capsule 5 mg PO QHS PRN 09/06/23 sertraline 50 mg tablet 50 mg PO DAILY 09/06/23 Current Visit Medications: Current Medications Generic Name Dose Route Start Last Admin Trade Name Freq PRN Reason Stop Dose Admin Ringer's Solution 1,000 mls @ 100 mls/hr 11/19/23 06:00 11/19/23 07:33 IV 11/19/23 23:59 100 mls/hr INFUSION DIANA Administration IV Miscellaneous Supplies 1 each 11/19/23 06:00 Iv Access IV 11/19/23 23:59 DIRECTED DIANA Sodium Chloride 0 ml 11/19/23 06:00 Normal Saline Flush 10 Ml Syr IV 11/19/23 23:59 PRN PRN Sodium Chloride 0 ml 11/19/23 06:00 Normal Saline 10 Ml Vial IJ 11/19/23 23:59 DIRECTED PRN Sterile Water 0 ml 11/19/23 06:00 Water,Injection,Sterile 10 Ml Vial IJ 11/19/23 23:59 DIRECTED PRN PFSH Active Problems Active Problems: Problem Status Onset Code 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 Neck pain Acute M54.2 Otalgia of left ear Acute H92.02 Medical History Medical History Acute rhinitis Bilateral knee pain Otitis media Perforation of tympanic membrane Depression with anxiety ADD (attention deficit disorder) Major depressive disorder Blepharitis Skin lesions Fatigue TMJ (dislocation of temporomandibular joint) Memory difficulties Chronic maxillary sinusitis Surgical History Surgical History History of placement of ear tubes History of tonsillectomy History of tympanoplasty Tobacco Smoking/Tobacco Use Status: Never Alcohol Alcohol Intake: never Substance Use Substance use: Never Substance use type: does not use Vital Signs and Lab Results Vital Signs Most Recent Vital Signs in EMR: Most Recent Vital Signs Temp Pulse Resp BP Pulse Ox 36.0 C L 72 16 120/70 100 11/19/23 07:20 11/19/23 07:20 11/19/23 07:20 11/19/23 07:20 11/19/23 07:20 Lab Results Blood Type / Crossmatch: No Data to Display Complete Blood Count: No Data to Display Complete Metabolic Panel: No Data to Display Liver Function Panel: No Data to Display Coagulation Panel: No Data to Display Cardiac Panel: No Data to Display Arterial Blood Gas: No Data to Display Venous Blood Gas: No Data to Display Pancreas Panel: No Data to Display Thyroid Panel: No Data to Display Infectious Disease: No Data to Display Blood Cultures: No Data to Display Toxicology Panel: No Data to Display Panel: No Data to Display Anesthesia Assessment and Plan Anesthesia History Personal History: No History of Anesthesia Complications Family History: No Family History of Anesthesia Complications Exercise Tolerance Exercise Tolerance: Metabolic Equivalents>4 Pertinent Negatives Pertinent Negatives: No Symptoms of GERD Cardiac & Pulmonary Exam Cardiac Exam: Normal S1/S2 Heart Sounds Pulmonary Exam: Clear Bilateral Breath Sounds Implantable Cardiac Device Does patient have a Pacemaker or an ICD?: No Airway Exam Known Difficult Airway: No Mallampati Class: 2 Mouth Opening: Narrow (< 3cm) Thyromental Distance: Greater than 3 cm Neck Range of Motion: Full ROM Neck Circumference: Normal Teeth Condition: Normal Dentition ASA Classification ASA Score: ASA 2 Emergency Case?: No NPO Status NPO Status: NPO Clears >2 hours, Solids >8 hours Status Status: Negative HCG Anesthesia Plan Resuscitation Status: Full Code Anesthesia Technique: General Anesthesia Airway Planned: Endotracheal Tube Monitors Used: Standard Monitors
--- NOTE | 2023-11-19 07:59 | W.PM.OP ---
Date of service: 11/19/23 Time of Service: 08:56 Operative Note Operative Note DATE OF PROCEDURE: 11/19/23 PRE-OP DIAGNOSIS: Lingual tonsil hypertrophy PROCEDURE: Lingual tonsil biopsy SURGEON: Flako Jordan Refer to Anesthesia Record PATHOLOGY: other (Lingual tonsil biopsies, sent in formalin and RPMI) Patient's condition: stable Indications: Patient with lingual tonsil hypertrophy found incidentally on workup for left TMJ. Options were explained to the patient regarding further management. She elected to undergo the above procedure. Consent was filled out and signed prior to the procedure. H&P was reviewed. There have been no changes. All questions were answered prior to procedure. She wished to proceed. Findings: Normal-appearing lingual tonsil, no masses or discrete lesions appreciated. Procedure Description: After obtaining an adequate level of general endotracheal anesthesia the patient positioned in supine position and prepped and draped in appropriate fashion. Because of her TMJ, the glide scope was used to perform the biopsies. This was done with a Mac blade. The entire tongue base as well as the laryngeal inlet and the hypopharynx were carefully examined. There were no discrete masses noted. Her lingual tonsil did appear slightly hypertrophic but otherwise normal. Using the reverse Vilma, multiple biopsies were taken across the entire lingual tonsil. These were then divided into 2 equal aliquots, and 50% of it was placed in formalin while 50% of it was placed into RPMI. The wound was inspected revealing no significant bleeding. The blade was then withdrawn from the mouth, revealing no damage to the teeth, although I did create a small excoriation of the right upper lip. There was no significant bleeding. There is no tissue loss at the level of the lip. The patient was then awakened and explained by anesthesia and taken the recovery room in stable condition. I was present throughout the entire procedure.
--- NOTE | 2023-11-19 07:59 | W.PM.DSUDISC ---
Date of service: 11/19/23 Time of Service: 08:02 Discharge Plan Disposition Patient Disposition: Home Condition: Good Discharge Details Reason For Visit: Lingual tonsil biopsy Attending Provider: Flako Jordan Primary Care Provider: Kat Agarwal Home Meds and New Rx's Prescriptions: No Action acetaminophen 325 mg capsule 325 mg PO ONCE PRN calcium carbonate [Calcium Antacid] 200 mg calcium (500 mg) tablet,chewable 200 mg PO BID melatonin 5 mg capsule 5 mg PO QHS PRN sertraline 50 mg tablet 50 mg PO DAILY bupropion HCl 150 mg tablet extended release 24 hr 150 mg PO DAILY Discharge Instructions Additional Instructions: My cell phone number is [phone]. Please call with any questions or concerns. If you feel it is an emergency and you cannot reach me, please call 911 or proceed to the emergency room Ibuprofen or/and Tylenol for discomfort. Expect minor blood in spit Expect a sore throat No dietary limitations Expect bad breath Call if you do not hear from me with regard to pathology results within [address] or operate dangerous equipment for at least 48 hours after a general anesthetic Referrals: Flako Jordan MD [ [facility] STAFF PHYSICIAN] - (1 month, please call for appointment prior to patient's departure) Diet:: As Tolerated Discharge Orders Discharge Orders: Discharge Order (Routine); Ordered 11/19/23 Ordered By: Flako Jordan
--- NOTE | 2023-11-19 08:39 | TONSIL_PTH ---
PATIENT: Dakotah Saleh LOC: [facility] U#:[id number] AGE/SX: 28/F ROOM: RE11/19/[address]: Flako Jordan MD : 1995 BED: DIS: 11/19/2023 SPEC #: [id number] RECD: 11/19/23 12:07 STATUS: JOE RE #: [id number] LESLI: 11/19/23 08:[address]: Flako Jordan DEPT: Surgical Specimen RECD BY: Zahra Perez ENTERED: 11/19/23 12:09 SP TYPE: TONSIL OTHR DR: Kat Agarwal Tissues: 1 - TONSIL BIOPSY 2 - FLOW CYTOMETRY NODE/TISSUE Procedures: GROSS AND MICRO LEVEL 4 FLOW CYTOMETRY LYMPHOMA PNL Comments: [id number] (FLOW CYTOMETRY [id number])
--- NOTE | 2023-11-19 09:32 | W.ANESPOSTOP ---
Postoperative Evaluation Date, Time and Location Date Performed: 11/19/23 Time Performed: 09:32 Patient Location: PACU Vital Signs Most Recent Imported Vital Signs: Most Recent Vital Signs Temp Pulse Resp BP Pulse Ox 36.6 C 72 16 118/62 100 11/19/23 09:28 11/19/23 09:30 11/19/23 09:31 11/19/23 09:30 11/19/23 09:31 Pain Score Most Recent Pain Score: Most Recent Pain Score Pain Level 0 11/19/23 09:28 Assessment Mental Status: Awake (Alert & Oriented to Patient Baseline) Airway and Respiratory Function: Patent airway with normal (patient baseline) respiratory exam Cardiovascular Function: Hemodynamically Stable Hydration Status: Adequately Hydrated Nausea & Vomiting: No Nausea or Vomiting Pain: Pt. Denies Any Pain Peripheral Nerve Block: Patient did not receive a nerve block Postoperative Comments:: Doing well in PACU.
== END 2023-11-19 10:53 | disposition home or self-care (01) ==
PROVIDERS: PCP Family Medicine; Visit Provider Otolaryngology
PROC: (CPT 41010; principal; 2023-11-19 08:15)
DX: J35.1 Hypertrophy of tonsils (principal)
CPT/HCPCS: 42800; 88305; 88184; 88185; J0330; J1100; J2250; J2405; J2704